=== PATIENT | female | born 1960 | race Two or more races ===

== ENCOUNTER → 2022-10-14 | Outpatient (CLI) | payer MEDICAID | END | disposition home or self-care (01) | LOC: LAB 12:18 | PROVIDERS: ATTEND Internal Medicine Pulmonary Disease | DX: Z01.812 Encounter for preprocedural laboratory examination (principal); Z20.822 Contact with and (suspected) exposure to COVID-19 | CPT/HCPCS: 36415; 87426 ==

== ENCOUNTER → 2022-10-15 | Outpatient (CLI) | payer MEDICAID ==
[~2022-10-15] MED LIST: ALBUTEROL MEDNEB 2.5 mg/3ml NEB ONE
== END | disposition home or self-care (01) ==
LOC: RT 13:30
PROVIDERS: ATTEND Internal Medicine Pulmonary Disease
DX: J44.9 Chronic obstructive pulmonary disease, unspecified (principal); R06.00 Dyspnea, unspecified; U09.9 Post COVID-19 condition, unspecified
CPT/HCPCS: 94060; 94727; 94729

== ENCOUNTER 2023-12-11 17:44 | Emergency (ER) | payer MEDICAID ==
[~2023-12-11] VITALS: Ht 167.6 cm; Wt 69.7 kg
[2023-12-11 19:03] VITALS: BP 148/87; PULSE 100; RESP 18; TEMP 98.2; O2SAT 100
== END 2023-12-11 20:04 | disposition home or self-care (01) ==
LOC: ER 17:44
DX: M25.512 Pain in left shoulder (principal); M54.50 Low back pain, unspecified; Z88.2 Allergy status to sulfonamides; V43.52XA Car driver injured in collision with other type car in traffic accident, initial encounter; Y93.89 Activity, other specified; Y92.89 Other specified places as the place of occurrence of the external cause; Y99.8 Other external cause status

== ENCOUNTER 2025-03-05 08:14 | Inpatient (IN) | payer MEDICAID ==
[~2025-03-05] VITALS: Ht 167.6 cm; Wt 74.0 kg
--- NOTE | 2025-03-05 08:33 | ECG ---
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
[2025-03-05 08:51] LABS: Basophils # (auto) 0 10 ^3/uL (0-0.2); Basophils % (auto) 0.3 % (0.0-2.0); Eosinophils # (auto) 0 10 ^3/uL (0-0.8); Eosinophils % (auto) 0.1 % (0.0-7.0); Hematocrit 38.8 % (36.0-46.0); Hemoglobin 13.4 g/dL (12.2-16.2); Lymphocytes # (auto) 1.3 10 ^3/uL (0.4-5.4); Lymphocytes % (auto) 30.8 % (10.0-50.0); Mean Corpuscular Hgb Conc. 34.5 g/dL (32.0-36.0); Mean Corpuscular Volume 84.1 fL (80.0-100.0); Monocytes # (auto) 0.4 10 ^3/uL (0-1.3); Monocytes % (auto) 9.1 % (0.0-12.0); Neutrophils # (auto) 2.6 10 ^3/uL (1.6-8.6); Neutrophils % (auto) 59.7 % (37.0-80.0); Nucleated Red Blood Cells % 0.1 %; Platelet Count (auto) 150 10^3/uL (140-450); Red Blood Cells 4.62 10^6/uL (4.0-5.20); Red Cell Distribution Width 15.2 % (11.8-14.3); White Blood Cell 4.3 10^3/uL (4.4-10.8)
--- NOTE | 2025-03-05 09:02 | ED.PDOC ---
SOB-HPI HPI Comments 64 year old female presents to the ED with a chief complaint of shortness of breath onset today (03/05/25). Patient states she woke up this morning around 02:00 experiencing shortness of breath, cough, lightheadedness/dizziness and tried to go back to sleep. She woke up again around 04:00, noticed symptoms had worsen, checked BP, was 156/80. Patient called [facility] at [facility], was advised to come to ED. Upon ED arrival, patient states she feels anxious. PMHx CHF, HTN, RA, fibromyalgia, Lupus. Denies chest pain, headache, nausea, vomiting, diarrhea, abdominal pain, nasal congestion, sore throat, fevers, chills. No other symptoms or modifying factors present at this time. Chief Complaint: Shortness of Breath Time Seen by MD: 08:40 Primary Care Provider: JOSEPHINE Torres notes: Medications, Allergies Information Source: Patient Mode of Arrival: Ambulatory Severity: Moderate Timing: Hours Duration: Since onset Context: While Asleep PE Risk Factors: None History of: CHF, Anxiety Prehospital treatment: None Modifying Factors: Nothing Associated Signs and Symptoms: Cough If cough with SOB: Non-Productive Past Medical History PAST MEDICAL HISTORY: Anxiety, Arthritis, CHF, HTN Past Medical History (Other): fibromyalgia Surgical History: Denies all surgeries DIRECTOR 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 RELATIONS History: No Pertinent DIRECTOR OF LABOR RELATIONS History Family History Family History: Reviewed,noncontributory to illness, No family hx of Cancer, No family hx of DM, No family hx of Heart angelia, No family hx of HTN, No family hx ofKidney angelia, No family hx of Liver angelia, No family hx of Lung angelia, No family hx of Stroke Social History Smoker: Non-Smoker Alcohol: Denies ETOH Use Drugs: Denies Drug Use Lives In: Home Constitutional: denies: chills, diaphoresis, fatigue, fever, malaise, sweats, weakness, others EENTM: denies: blurred vision, double vision, ear bleeding, ear discharge, ear drainage, ear pain, ear ringing, eye pain, eye redness, hearing loss, mouth pain, mouth swelling, nasal discharge, nose bleeding, nose congestion, nose pain, photophobia, tearing, throat pain, throat swelling, voice changes, others Respiratory: reports: cough, shortness of breath; denies: hemoptysis, orthopnea, SOB at rest, SOB with excertion, stridor, wheezing, others Cardiovascular: denies: chest pain, dizzy spells, diaphoresis, Dyspnea on exertion, edema, irregular heart beat, left arm pain, lightheadedness, palpitations, PND, syncope, others Gastrointestinal: denies: abdomen distended, abdominal pain, blood streaked bowels, constipated, diarrhea, dysphagia, difficulty swallowing, hematemesis, melena, nausea, poor appetite, poor fluid intake, rectal bleeding, rectal pain, vomiting, others Genitourinary: denies: abnormal vagina bleeding, burning, dyspareunia, dysuria, flank pain, frequency, hematuria, incontinence, pain, , vagina discharge, urgency, others Neurological: reports: dizziness; denies: fainting, headache, left sided numbness, left sided weakness, numbness, paresthesia, pre-existing deficit, right sided numbness, right sided weakness, seizure, speech problems, tingling, tremors, weakness, others Musculoskeletal: denies: back pain, gout, joint pain, joint swelling, muscle pain, muscle stiffness, neck pain, others Integumetry: denies: bruises, change in color, change in hair/nails, dryness, laceration, lesions, lumps, rash, wounds, others Allergic/Immunocompromised: denies: Difficulty Healing, Frequent Infections, Hives, Itching, others Hematologic/Lymphatic: denies: anemia, blood clots, easy bleeding, easy bruising, swollen glands, others Endocrine: denies: excessive hunger, excessive sweating, excessive thirst, excessive urination, flushing, intolerance to cold, intolerance to heat, unexplained weight gain, unexplained weight loss, others Psychiatric: reports: anxiety; denies: bipolar disorder, depression, hopeless, panic disorder, schizophrenia, sleepless, suicidal, others All Other Systems: Reviewed and Negative Physical Exam General Appearance: No Apparent Distress, Normal HEENT: Normal ENT Inspection, Pharynx Normal, TMs Normal Neck: Full Range of Motion, Non-Tender, Normal, Normal Inspection Respiratory: Chest Non-Tender, Lungs Clear, No Accessory Muscle Use, No Respiratory Distress, Normal Breath Sounds Cardiovascular: No Edema, No JVD, No Murmur, No Gallop, Normal Peripheral Pulses, Regular Rate/Rhythm Breast Exam: Deferred Gastrointestinal: No Organomegaly, Non Tender, No Pulsatile Mass, Normal Bowel Sounds, Soft Genitalia: Deferred Pelvic: Deferred Rectal: Deferred Extremities: No calf tenderness, Normal capillary refill, Normal inspection, Normal range of motion, Non-tender, No pedal edema Musculoskeletal : Apperance: Normal Neurologic: Alert, wellness program manager II-XII nml as Tested, No Motor Deficits, Normal Affect, Normal Mood, No Sensory Deficits Cerebellar Function: Normal Reflexes: Normal Skin: Dry, Normal Color, Warm Lymphatic: No Adenopathy Was a procedure done? Was a procedure done?: No Differential Dx Differential Diagnosis: Cardiogenic Shock, CHF, COPD, Panic Attack, Pneumonia, URI X-Ray, Labs, Meds, VS Vital Signs Date Time Temp Pulse Resp B/P (MAP) Pulse Ox O2 Delivery O2 Flow Rate FiO2 03/05/25 10:50 98.1 76 17 155/95 (115) 99 98.1 03/05/25 10:46 155/95 03/05/25 09:34 71 17 98 Room Air* 0 21 03/05/25 09:34 98.0 71 17 152/85 (107) 98 98.0 03/05/25 08:31 70 03/05/25 08:30 98.4 76 16 169/79 (109) 100 98.4 Lab Test 03/05/25 09:30 03/05/25 08:40 Range/Units Troponin I High Sensitivity 5 4 </=34 ng/L White Blood Count 4.3 L 4.4-10.8 10^3/uL Red Blood Count 4.62 4.0-5.20 10^6/uL Hemoglobin 13.4 12.2-16.2 g/dL Hematocrit 38.8 36.0-46.0 % Mean Corpuscular Volume 84.1 80.0-100.0 fL Mean Corpuscular Hemoglobin 29.0 28.0-32.0 pg Mean Corpuscular Hemoglobin Concent 34.5 32.0-36.0 g/dL Red Cell Distribution Width 15.2 H 11.8-14.3 % Platelet Count 150 140-450 10^3/uL Mean Platelet Volume 7.5 6.9-10.8 fL Neutrophils (%) (Auto) 59.7 37.0-80.0 % Lymphocytes (%) (Auto) 30.8 10.0-50.0 % Monocytes (%) (Auto) 9.1 0.0-12.0 % Eosinophils (%) (Auto) 0.1 0.0-7.0 % Basophils (%) (Auto) 0.3 0.0-2.0 % Neutrophils # (Auto) 2.6 1.6-8.6 10 ^3/uL Lymphocytes # (Auto) 1.3 0.4-5.4 10 ^3/uL Monocytes # (Auto) 0.4 0-1.3 10 ^3/uL Eosinophils # (Auto) 0 0-0.8 10 ^3/uL Basophils # (Auto) 0 0-0.2 10 ^3/uL Nucleated Red Blood Cells 0.1 % Prothrombin Time 10.4 9.3-11.8 sec Prothrombin Time INR 0.98 0.9-1.15 Activated Partial Thromboplast Time 28.2 24.5-34.5 SEC Sodium Level 142 136-145 mmol/L Potassium Level 3.8 3.5-5.1 mmol/L Chloride Level 107 98-107 mmol/L Carbon Dioxide Level 27 20-31 mmol/L Anion Gap 8 5-15 Blood Urea Nitrogen 16 9-23 mg/dL Creatinine 0.68 0.550-1.02 mg/dL Glomerular Filtration Rate Calc 98 >90 mL/min BUN/Creatinine Ratio 23.5 H 10.0-20.0 Serum Glucose 89 74-106 mg/dL Calcium Level 9.8 8.7-10.4 mg/dL Total Bilirubin 1.9 H 0.2-1.0 mg/dL Aspartate Amino Transferase (AST) 18 13-40 U/L Alanine Aminotransferase (ALT) 15 7-40 U/L Alkaline Phosphatase 76 46-116 U/L B-Type Natriuretic Peptide 64.83 0-100 pg/mL Total Protein 7.0 5.7-8.2 g/dL Albumin 4.4 3.2-4.8 g/dL Current Medications Medications (Trade) Dose Ordered Sig/Stephania Route Start Time Stop Time Status Last Admin Furosemide (Lasix Injection) 20 mg ONCE ONCE IV 03/05/25 10:30 03/05/25 10:31 DC 03/05/25 10:[address] [address] Ph: [phone] DIAGNOSTIC IMAGING Diagnostic Imaging Report : [id number] Signed PATIENT: CYRUS GARCIA ACCT: [id number] UNIT: [id number] : 1960 LOC: ER ROOM / BED: / AGE / SEX: 64 / F ADM STATUS: REG ER SERVICE 7 ORDERING PHYSICIAN: REID COLINDRES MD PROCEDURE(s): CXRP - CHEST PORTABLE REASON: sob ORDER NUMBER(s): [id number], ACCESSION NUMBER(s): [id number] CHEST RADIOGRAPH Indication: sob Technique: Single frontal view of the chest was obtained Comparison: None FINDINGS: Lines and Tubes: None Lungs: No focal consolidation. Pleura: No effusion. No pneumothorax. Cardiomediastinal contours: Unremarkable Bones: No acute osseous abnormality. IMPRESSION: 1. No acute cardiopulmonary disease. ATED BY: UZIEL FISCHER MD DICTATED DATE/TIME: 03/05/25958 SIGNED BY: UZIEL FISCHER MD SIGNED DATE/TIME: 03/05/25958 CC: Time of 1ST Reevaluation: 09:10 Reevaluation 1ST: Unchanged Patient Education/Counseling: Diagnosis, Treatment, Prognosis Family Education/Counseling: No Family Present Departure 1 Departure Time of Disposition: 11:17 (Patient presented with shortness of breath that was concerning for possible STEMI, ACS, PE, Pneumonia, Muscle Strain, COPD, Dissection, Acute on Chronic systolic and Diastolic dysfunction. Data: 1. I ordered and reviewed the result of at least 3 labs including a CBC, BMP, and Troponin. 2. I independently interpreted the following tests: EKG which shows sinus arrhthmia and Chest X-ray which shows cardiomegaly.Risk:This patient has a high risk of morbidity due to further diagnostic testing or treatment and may suffer from an acute cardiac or respiratory disorder but is most consitent with an acute chf exacerbation. Patient should be admitted for further workup and possible expert consultation. ) Impression: Primary Impression: Acute on chronic systolic heart failure Additional Impressions: Shortness of breath Lower extremity edema Disposition: ADMITTED INPATIENT Admit to: Med Surg Condition: Guarded Critical Care Note Critical Care Time?: Yes Critical care comment: Shortness of breath Authorized and Performed by: Reid Colindres MD Total critical care time: Approximately 33 minutes Due to a high probability of clinically significant, life threatening deterioration, the patient required my highest level of preparedness to intervene emergently and I personally spent this critical care time directly and personally managing the patient. This critical care time included obtaining a history; examining the patient; pulse oximetry; ordering and review of studies; arranging urgent treatment with development of a management plan; evaluation of patient's response to treatment; frequent reassessment; and, discussions with other providers. This critical care time was performed to assess and manage the high probability of imminent, life-threatening deterioration that could result in multi-organ failure. It was exclusive of separately billable procedures and treating other patients and teaching time. Please see my other sections and the rest of the note for further information on patient assessment and treatment. Stability Stability form required: No Heart Score Heart Score: Heart Score Response (Comments) Value History Slightly Suspicious 0 EKG Repolarization Disturb 1 Age 45-64 1 Risk Factors >3 or Hx ASHD 2 Troponin Normal limit 0 Total 4 I personally scribed for REID COLINDRES MD ([email or web address]) on 03/05/25 at 09:02. Electronically submitted by Sheridan Mendoza ([email or web address]). I personally scribed for REID COLINDRES MD ([email or web address]) on 03/05/25 at 10:17. Electronically submitted by Sheridan Mendoza ([email or web address]). REID COLINDRES MD Mar 05, 2025 09:02
[2025-03-05 09:07] LABS: INR 0.98 (0.9-1.15); Partial Thromboplastin Time 28.2 SEC (24.5-34.5); Prothrombin Time 10.4 sec (9.3-11.8)
[2025-03-05 09:13] LABS: Alanine Aminotransferase 15 U/L (7-40); Albumin 4.4 g/dL (3.2-4.8); Alkaline Phosphatase 76 U/L (46-116); Anion Gap 8 (5-15); Aspartate Aminotransferase 18 U/L (13-40); BUN/Creatinine Ratio 23.5 (10.0-20.0); Blood Urea Nitrogen 16 mg/dL (9-23); Calcium 9.8 mg/dL (8.7-10.4); Carbon Dioxide 27 mmol/L (20-31); Chloride 107 mmol/L (98-107); Glucose 89 mg/dL (74-106); Potassium 3.8 mmol/L (3.5-5.1); Sodium 142 mmol/L (136-145)
[2025-03-05 09:15] LABS: Bilirubin, Total 1.9 mg/dL (0.2-1.0)
[2025-03-05 09:34] VITALS: PULSE 71; RESP 17; O2SAT 98
--- NOTE | 2025-03-05 10:01 | DVH ---
CHEST RADIOGRAPH Indication: sob Technique: Single frontal view of the chest was obtained Comparison: None FINDINGS: Lines and Tubes: None Lungs: No focal consolidation. Pleura: No effusion. No pneumothorax. Cardiomediastinal contours: Unremarkable Bones: No acute osseous abnormality. IMPRESSION: 1. No acute cardiopulmonary disease.
[2025-03-05] MEDS: FUROSEMIDE 40 MG/4 ML VIAL IV ONE (10:46)
[2025-03-05] MEDS ORDERED: SODIUM CHLOR 0.9% PF (SALINE LOCK) 10ML VIAL/SYR IV SCH (14:00)
--- NOTE | 2025-03-05 14:22 | DVHHP2 ---
History of Present Illness Reason for Visit: Shortness of breath History of Present Illness Maria Teresa Membreno is a 64-year-old female with past medical history of hypertension, rheumatoid arthritis, anxiety, chronic pain, lupus, fibromyalgia, and CHF, who came to the hospital due to shortness of breath. Patient states she was recently diagnosed with CHF. She was prescribed spirolactone, but told not to start it because she was not retaining any water. This morning she woke up with her eyes, hands, feet, and abdomen swollen. She states she was having difficulty wiggling her toes due to the edema. She has gained about 6-8 pounds in the last couple of days. Patient follows with cardiology at [place], states she recently had an ECHO that showed an ER of 35-40%. Cardiovascular: CHF, HTN Psych: Anxiety Rheumatologic: Other (lupus, chronic pain, fibromyalgia), Rheumatoid arthritis Past Surgical History: Other (left knee), Tubal Ligation, Tonsillectomy Smoke: No ALCOHOL: none Drugs: None Lives: Alone Domestic Violence: Neg Review of Systems Constitutional: No: Fever, Chills, Sweats, Weakness, Malaise, Other Eyes: No: Pain, Vision change, Conjunctivae inflammation, Eyelid inflammation, Other, Redness ENT: No: Ear pain, Ear discharge, Nose pain, Nose discharge, Nose congestion, Mouth pain, Mouth swelling, Throat pain, Throat swelling, Other Respiratory: Shortness of breath; No: Cough, Dry, SOB with excertion, Wheezing, Hemoptysis, Pleuritic Pain, Sputum, Wheezing, Other Cardiovascular: Edema (bilateral upper and lower extremities); No: Chest Pain, Palpitations, Orthopnea, Paroxysmal Noc. Dyspnea, Lt Headedness, Other Gastrointestinal: No: Nausea, Vomiting, Abdominal Pain, Diarrhea, Constipation, Melena, Hematochezia, Other Genitourinary: No Dysuria, No Frequency, No Incontinence, No Hematuria, No Retention, No Other Musculoskeletal: No: other, neck pain, shoulder pain, arm pain, back pain, hand pain, leg pain, foot pain Skin: No: Rash, Lesions, Jaundice, Bruising, Other Neurological: No: Weakness, Numbness, Incoordination, Change in speech, Confusion, Seizures, Other Allergies: Coded Allergies: Phenazopyridine (Verified Allergy, Unknown, 08/28/16) Sulfa Antibiotics (Verified Allergy, Unknown, 08/28/16) Exam Vital Signs Vital Signs Date Time Temp Pulse Resp B/P (MAP) Pulse Ox O2 Delivery O2 Flow Rate FiO2 03/05/25 13:38 98.3 79 14 121/73 (89) 100 98.3 03/05/25 09:34 Room Air* 0 21 General Appearance: Alert, Oriented X3, Cooperative, mild distress HEENT: Atraumatic, PERRLA, Mucous membr. moist/pink Respiratory: Clear to auscultation, Normal air movement Cardiovascular: Regular rate, Normal S1, Normal S2, No murmurs Abdominal: Normal bowel sounds Extremities: No clubbing, No cyanosis, Normal pulses, Other (bilateral lower extremity edema) Skin: No rashes, No breakdown, No significant lesion Neuro: Normal gait, Normal speech, Strength at 5/5 X4 ext, Normal tone Psych/Mental Status: Mental status NL, Mood NL, Other Labs/Xrays Labs Test 03/05/25 09:30 03/05/25 08:40 Range/Units Troponin I High Sensitivity 5 </=34 ng/L White Blood Count 4.3 L 4.4-10.8 10^3/uL Red Blood Count 4.62 4.0-5.20 10^6/uL Hemoglobin 13.4 12.2-16.2 g/dL Hematocrit 38.8 36.0-46.0 % Mean Corpuscular Volume 84.1 80.0-100.0 fL Mean Corpuscular Hemoglobin 29.0 28.0-32.0 pg Mean Corpuscular Hemoglobin Concent 34.5 32.0-36.0 g/dL Red Cell Distribution Width 15.2 H 11.8-14.3 % Platelet Count 150 140-450 10^3/uL Mean Platelet Volume 7.5 6.9-10.8 fL Neutrophils (%) (Auto) 59.7 37.0-80.0 % Lymphocytes (%) (Auto) 30.8 10.0-50.0 % Monocytes (%) (Auto) 9.1 0.0-12.0 % Eosinophils (%) (Auto) 0.1 0.0-7.0 % Basophils (%) (Auto) 0.3 0.0-2.0 % Neutrophils # (Auto) 2.6 1.6-8.6 10 ^3/uL Lymphocytes # (Auto) 1.3 0.4-5.4 10 ^3/uL Monocytes # (Auto) 0.4 0-1.3 10 ^3/uL Eosinophils # (Auto) 0 0-0.8 10 ^3/uL Basophils # (Auto) 0 0-0.2 10 ^3/uL Nucleated Red Blood Cells 0.1 % Prothrombin Time 10.4 9.3-11.8 sec Prothrombin Time INR 0.98 0.9-1.15 Activated Partial Thromboplast Time 28.2 24.5-34.5 SEC Sodium Level 142 136-145 mmol/L Potassium Level 3.8 3.5-5.1 mmol/L Chloride Level 107 98-107 mmol/L Carbon Dioxide Level 27 20-31 mmol/L Anion Gap 8 5-15 Blood Urea Nitrogen 16 9-23 mg/dL Creatinine 0.68 0.550-1.02 mg/dL Glomerular Filtration Rate Calc 98 >90 mL/min BUN/Creatinine Ratio 23.5 H 10.0-20.0 Serum Glucose 89 74-106 mg/dL Calcium Level 9.8 8.7-10.4 mg/dL Total Bilirubin 1.9 H 0.2-1.0 mg/dL Aspartate Amino Transferase (AST) 18 13-40 U/L Alanine Aminotransferase (ALT) 15 7-40 U/L Alkaline Phosphatase 76 46-116 U/L B-Type Natriuretic Peptide 64.83 0-100 pg/mL Total Protein 7.0 5.7-8.2 g/dL Albumin 4.4 3.2-4.8 g/dL CHEST RADIOGRAPH FINDINGS: Lines and Tubes: None Lungs: No focal consolidation. Pleura: No effusion. No pneumothorax. Cardiomediastinal contours: Unremarkable Bones: No acute osseous abnormality. IMPRESSION: 1. No acute cardiopulmonary disease. Assessment/Plan Assessment/Plan Assessment: Acute on chronic systolic heart failure, Hypertension, Rheumatoid arthritis, Chronic pain, Fibromyalgia, Plan: Admit to Med-Surg, Fluid restrictions, IV Lasix, Home medications reconciled, Consider cardiology consult if symptoms do not improve, Plan discussed with: Patient My Orders Orders - NATHALY ZUNIGA UPSETTER SETTER UP Procedure Category Date Status Time Admit ADMIT 03/05/25 Transmitted 14:18 Code Status CODE 03/05/25 Transmitted 14:18 Sodium Chloride Lock PHA 03/05/25 Transmitted (Saline Lock Ns) 22:00 Ondansetron Hcl PHA 03/05/25 Transmitted (Zofran) 14:30 Docusate Sodium PHA 03/05/25 Transmitted Capsule (Colace 14:30 Complete Blood Count LAB 03/06/25 Verified 04:00 Comprehensive LAB 03/06/25 Verified Metabolic Panel 04:00 Cardiac DIET 03/05/25 Transmitted Diet-2gna,Lofat,Lochol Dinner Condition: Serious E[place] 03/05/25 Transmitted 14:18 Acetaminophen Tablet PHA 03/05/25 Transmitted (Tylenol Tablet) 14:30 Stat Ekg For Chest [place] 03/05/25 Transmitted Pain 14:18 Maintain Fluid E[place] 03/05/25 Transmitted Restrictions 14:18 Date of Service: Mar 05, 2025 Billing Provider: NATHALY ZUNIGA Common Visit Codes: [id number] INP/OBS CARE (MOD) NATHALY ZUNIGA Mar 05, 2025 14:22
[2025-03-05] MEDS ORDERED: ONDANSETRON HCL 4 MG/2 ML VIAL IV PRN (14:30)
[2025-03-05] MEDS ORDERED: DOCUSATE SOD 100 MG CAP PO PRN (14:30)
[2025-03-05] MEDS ORDERED: ACETAMINOPHEN 325 MG TAB PO PRN (14:30)
[2025-03-05 15:03] VITALS: BP 127/69; PULSE 76; RESP 16; TEMP 98.3; O2SAT 94
[2025-03-05 15:33] VITALS: BP 155/95; PULSE 76; RESP 16; TEMP 98.3; O2SAT 94
[2025-03-05] MEDS ORDERED: METO25TA93 PO (15:44)
[2025-03-05] MEDS ORDERED: OXY20CRT PO (15:44)
[2025-03-05] MEDS ORDERED: LOS25T PO (15:44)
[2025-03-05] MEDS ORDERED: HYDR-4798 PO (15:44)
[2025-03-05] MEDS ORDERED: ZOLP10TA6 PO (15:44)
[2025-03-05] MEDS ORDERED: MAGN400T6 PO (15:44)
[2025-03-05] MEDS ORDERED: SPIR25TA8 PO (15:44)
[2025-03-05] MEDS ORDERED: ZOLPIDEM TARTRATE 5 MG TAB PO PRN (16:00)
[2025-03-05] MEDS ORDERED: SEMA2.4I SC (17:04)
[2025-03-05] MEDS ORDERED: ETAN50IN10 SC (17:04)
[2025-03-05] MEDS: HYDROcodone-ACET 10/325MG TAB PO PRN (17:19)
[2025-03-05] MEDS: ACETAMINOPHEN 325 MG TAB PO PRN (17:44)
[2025-03-05] MEDS: SODIUM CHLOR 0.9% PF (SALINE LOCK) 10ML VIAL/SYR IV SCH (22:00)
[2025-03-05] MEDS: oxyCODONE ER 20 MG TAB PO SCH (22:34)
[2025-03-06] VITALS (7 sets, daily range): BP systolic 103–146; BP diastolic 66–88; PULSE 63–80; RESP 15–19; TEMP 97.3–98.1; O2SAT 95–99
[2025-03-06 06:50] LABS: Basophils # (auto) 0 10 ^3/uL (0-0.2); Basophils % (auto) 0.3 % (0.0-2.0); Eosinophils # (auto) 0 10 ^3/uL (0-0.8); Eosinophils % (auto) 0.3 % (0.0-7.0); Hematocrit 38.9 % (36.0-46.0); Hemoglobin 13.3 g/dL (12.2-16.2); Lymphocytes % (auto) 27.2 % (10.0-50.0); Mean Corpuscular Hemoglobin 28.8 pg (28.0-32.0); Mean Corpuscular Hgb Conc. 34.3 g/dL (32.0-36.0); Mean Corpuscular Volume 83.9 fL (80.0-100.0); Monocytes # (auto) 0.4 10 ^3/uL (0-1.3); Monocytes % (auto) 11.4 % (0.0-12.0); Neutrophils # (auto) 2.3 10 ^3/uL (1.6-8.6); Neutrophils % (auto) 60.8 % (37.0-80.0); Nucleated Red Blood Cells % 0.1 %; Platelet Count (auto) 155 10^3/uL (140-450); Red Blood Cells 4.63 10^6/uL (4.0-5.20); Red Cell Distribution Width 15.1 % (11.8-14.3); White Blood Cell 3.8 10^3/uL (4.4-10.8)
[2025-03-06 06:59] LABS: Alanine Aminotransferase 11 U/L (7-40); Albumin 4.1 g/dL (3.2-4.8); Alkaline Phosphatase 68 U/L (46-116); Anion Gap 8 (5-15); Aspartate Aminotransferase 15 U/L (13-40); BUN/Creatinine Ratio 25.8 (10.0-20.0); Blood Urea Nitrogen 17 mg/dL (9-23); Calcium 9.7 mg/dL (8.7-10.4); Carbon Dioxide 28 mmol/L (20-31); Chloride 107 mmol/L (98-107); Glucose 86 mg/dL (74-106); Potassium 3.8 mmol/L (3.5-5.1); Sodium 143 mmol/L (136-145); Total Protein 6.6 g/dL (5.7-8.2)
[2025-03-06 07:01] LABS: Bilirubin, Total 2.2 mg/dL (0.2-1.0)
[2025-03-06] MEDS: FUROSEMIDE 20 MG/2 ML VIAL IV SCH (09:15)
[2025-03-06] MEDS: METOPROLOL SUCCINATE XL 50 MG TAB PO SCH (09:15)
[2025-03-06] MEDS: LOSARTAN POTASSIUM 25 MG TAB PO SCH (09:15)
[2025-03-06] MEDS ORDERED: MAGNESIUM OXIDE 400 MG TAB PO SCH (10:00)
[2025-03-06 10:30] LABS: Hepatitis B Surface Antibody Negative (Negative); Hepatitis C Antibody Negative (Negative)
--- NOTE | 2025-03-06 12:04 | DVHSR ---
APPROVED REPORT EXAM: Two-dimensional and M-mode echocardiogram with Doppler and color Doppler. Blood Pressure: 126/78 mmHg INDICATION HF RISK FACTORS Height: 66, Weight: 156 DIMENSIONS LVDd5.2 (3.8-5.7cm)LA (2D)3.7 (1.9-4.0cm)Aortic Root3.5 (2.0-3.7cm) LVDs4.3 (2.5-4.0cm)LA (MM) (1.9-4.0cm)Aortic Cusp Exc1.7 (1.5-2.0cm) EF (%) 35.0 (55-70%)Rt. Atrium4.2 (1.9-4.0cm)Asc. Aorta cm Mitral Valve MitralMitral Stenosis E wave0.52m/sMV Mean GR.mmHg A wave0.74m/sMV Peak GR.61mmHg E/A ratio0.72D MVAcm2 DECEL [id number] 1/2 Timems Aortic Valve Aortic ValveAortic Stenosis V10.67m/Norma Mean GR.3mmHg V21.21m/Norma Peak GR.6mmHg LVOT Diameter2.2 (1.8-2.4cm)Doppler AVA2.10cm2 Pulmonic Valve V20.77m/s Other Information Technically limited study due to body habitus, patient position and patient continued to move and cl ear her throat throughout the entire study. Conclusion lvef 35% LV dilated mild normal rv function no severe valve abnormalities noted mild mitral regurg
--- NOTE | 2025-03-06 16:56 | DVHPNRES ---
Progress Note Date Seen: Mar 06, 2025 Resident Creating Document: ARMANI VERDUZCO RESIDENT Has the PT tested + for MRSA If YES, has PT been informed?: No Medical Necessity Reason Pt with a Central, PICC or Fol: No Subjective Review of Systems Maria Teresa Membreno is a 64-year-old female with past medical history of hypertension, rheumatoid arthritis, anxiety, chronic pain, lupus, fibromyalgia, and CHF, who came to the hospital due to shortness of breath. Patient states she was recently diagnosed with CHF on oct 2024,. She was prescribed spirolactone, but told not to start it because she was not retaining any water. This morning she woke up with her eyes, hands, feet, and abdomen swollen. She states she was having difficulty wiggling her toes due to the edema. She has gained about 6-8 pounds in the last couple of days. Patient follows with cardiology at [place], states she recently had an ECHO that showed an ER of 35-40%, pending ischemic work up Cardiovascular: CHF, HTN Psych: Anxiety Rheumatologic: Other (lupus, chronic pain, fibromyalgia), Rheumatoid arthritis Past Surgical History: Other (left knee), Tubal Ligation, Tonsillectomy Smoke: No ALCOHOL: none Drugs: None Lives: Alone Domestic Violence: Neg 03/06/25: furosemide IV given, edema and crackle improved, continue diuresis 1 more day, echo here in [facility] EF35% no major valvular abnormalities Objective vital signs Vital Sign Date Time Temp Pulse Resp B/P (MAP) Pulse Ox O2 Delivery O2 Flow Rate FiO2 03/06/25 13:26 98.1 70 16 118/75 (89) 96 98.1 03/06/25 08:28 Room Air* 0 21 Total Intake and Output 03/05/25 03/05/25 03/06/25 15:00 23:00 07:00 Intake Total 300 ml Balance 300 ml medications Current Medications Medications Dose Ordered Sig/Stephania Route Start Time Stop Time Status Last Admin Dose Admin Sodium Chloride 10 ml Q8HR IV 03/05/25 22:00 03/06/25 13:07 10 ML Ondansetron HCl 4 mg Q4HP PRN IV 03/05/25 14:30 Docusate Sodium 100 mg BIDPRN PRN PO 03/05/25 14:30 Acetaminophen/ Hydrocodone Bitart 1 tab TIDP PRN PO 03/05/25 15:00 03/06/25 11:43 1 TAB Losartan Potassium 25 mg DAILY PO 03/06/25 10:00 03/06/25 09:15 25 MG Metoprolol Succinate 25 mg DAILY PO 03/06/25 10:00 03/06/25 09:15 25 MG Acetaminophen 650 mg Q6HP PRN PO 03/05/25 16:00 03/06/25 00:51 650 MG Oxycodone HCl 20 mg BIDP PRN PO 03/06/25 16:45 UNV Examination General Appearance: Alert, Oriented X3, Cooperative, mild distress HEENT: Atraumatic, PERRLA, Mucous membr. moist/pink Respiratory: Clear to auscultation, Normal air movement Cardiovascular: Regular rate, Normal S1, Normal S2, No murmurs Abdominal: Normal bowel sounds Extremities: No clubbing, No cyanosis, Normal pulses, Other (bilateral lower extremity edema) Skin: No rashes, No breakdown, No significant lesion Neuro: Normal gait, Normal speech, Strength at 5/5 X4 ext, Normal tone Psych/Mental Status: Mental status NL, Mood NL, Other laboratory and microbiology Laboratory Tests 03/06/25 06:06 Test 03/06/25 06:06 Range/Units Serum Glucose 86 74-106 mg/dL Problem List/Assessment/Plan Problem List/Assessment/Plan #Acute on chronic systolic heart failure #Hypertension #Rheumatoid arthritis #Chronic pain #Fibromyalgia Furosemide 20 mg IV Metoprolol and losartan 25 mg Oxycodone ER tablet Case discussed with Dr Grewal Full code Plan discussed with: Patient, Other My Orders My Orders Orders - ARMANI VERDUZCO RESIDENT Procedure Category Date Status Time Echo 2d Mode Cardiac US 03/06/25 Resulted DOP 08:28 Oxycodone Er Tablet PHA 03/06/25 Logged (Oxycontin Er Tablet 16:45 Date of Service: Mar 06, 2025 Billing Provider: SITA GREWAL MD Common Visit Codes: [id number] INP/OBS CARE(HIGH) ARMANI VERDUZCO RESIDENT Mar 06, 2025 16:56 SITA GREWAL MD Mar 07, 2025 15:38
[2025-03-07 01:00] VITALS: BP 122/82; PULSE 67; RESP 14; TEMP 97.2; O2SAT 98
[2025-03-07] MEDS: oxyCODONE ER 20 MG TAB PO PRN (04:38)
[2025-03-07 05:00] VITALS: BP 119/80; PULSE 77; RESP 14; TEMP 96.6; O2SAT 100
[2025-03-07] MEDS: FUROSEMIDE 20 MG/2 ML VIAL IV SCH (08:48)
[2025-03-07 09:40] VITALS: BP 127/76; PULSE 78; RESP 16; TEMP 97.2; O2SAT 99
[2025-03-07] MEDS: KETOROLAC TROMETH 30 MG/ML 1ML VIAL IV ONE (11:39)
[2025-03-07 12:27] LABS: Urine Bacteria None Seen /hpf (None Seen)
[2025-03-07 12:42] LABS: Urine Blood Negative /uL (Negative); Urine Clarity Clear (Clear); Urine Color Light-Yellow (Yellow); Urine Mucus FEW (None Seen); Urine Protein, UAD Negative (Negative); Urine Specific Gravity 1.018 (1.001-1.035); Urine Squamous Epithelial Cell FEW /hpf (<5); Urine Urobilinogen Normal (Negative); Urine WBC 1 /HPF (0-5); Urine pH 5.5 (5.0-9.0)
--- NOTE | 2025-03-07 15:56 | DVHDSRES ---
Discharge Summary Date of Admission Resident Creating Document: ARMANI VERDUZCO RESIDENT Mar 05, 2025 at 14:18 Date of Discharge: Mar 07, 2025 Admitting Diagnosis #Acute on chronic systolic heart failure Labs/Diagnostic Data: Laboratory Results Test 03/07/25 10:34 03/06/25 06:06 03/05/25 09:30 03/05/25 08:40 Urine Color Light-yellow (Yellow) Urine Clarity Clear (Clear) Urine pH 5.5 (5.0-9.0) Urine Specific [place] 1.018 (1.001-1.035) Urine Protein Negative (Negative) Urine Ketones Negative (Negative) Urine Blood Negative /uL (Negative) Urine Nitrite Negative (Negative) Urine Bilirubin Negative (Negative) Urine Urobilinogen Normal mg/dL (Negative) Urine Leukocyte Esterase Negative /uL (Negative) Urine RBC 1 /hpf (0 - 4) Urine Microscopic WBC 1 /HPF (0-5) Urine Squamous Epithelial Cells Few /hpf (<5) Urine Bacteria None seen /hpf (None Seen) Urine Mucus Few (None Seen) Urine Glucose Normal mg/dL (Normal) White Blood Count 3.8 10^3/uL (4.4-10.8) Red Blood Count 4.63 10^6/uL (4.0-5.20) Hemoglobin 13.3 g/dL (12.2-16.2) Hematocrit 38.9 % (36.0-46.0) Mean Corpuscular Volume 83.9 fL (80.0-100.0) Mean Corpuscular Hemoglobin 28.8 pg (28.0-32.0) Mean Corpuscular Hemoglobin Concent 34.3 g/dL (32.0-36.0) Red Cell Distribution Width 15.1 % (11.8-14.3) Platelet Count 155 10^3/uL (140-450) Mean Platelet Volume 7.7 fL (6.9-10.8) Neutrophils (%) (Auto) 60.8 % (37.0-80.0) Lymphocytes (%) (Auto) 27.2 % (10.0-50.0) Monocytes (%) (Auto) 11.4 % (0.0-12.0) Eosinophils (%) (Auto) 0.3 % (0.0-7.0) Basophils (%) (Auto) 0.3 % (0.0-2.0) Neutrophils # (Auto) 2.3 10 ^3/uL (1.6-8.6) Lymphocytes # (Auto) 1.0 10 ^3/uL (0.4-5.4) Monocytes # (Auto) 0.4 10 ^3/uL (0-1.3) Eosinophils # (Auto) 0 10 ^3/uL (0-0.8) Basophils # (Auto) 0 10 ^3/uL (0-0.2) Nucleated Red Blood Cells 0.1 % Sodium Level 143 mmol/L (136-145) Potassium Level 3.8 mmol/L (3.5-5.1) Chloride Level 107 mmol/L (98-107) Carbon Dioxide Level 28 mmol/L (20-31) Anion Gap 8 (5-15) Blood Urea Nitrogen 17 mg/dL (9-23) Creatinine 0.66 mg/dL (0.550-1.02) Glomerular Filtration Rate Calc 99 mL/min (>90) BUN/Creatinine Ratio 25.8 (10.0-20.0) Serum Glucose 86 mg/dL (74-106) Calcium Level 9.7 mg/dL (8.7-10.4) Magnesium Level 2.3 mg/dL (1.6-2.6) Total Bilirubin 2.2 mg/dL (0.2-1.0) Aspartate Amino Transferase (AST) 15 U/L (13-40) Alanine Aminotransferase (ALT) 11 U/L (7-40) Alkaline Phosphatase 68 U/L (46-116) Total Protein 6.6 g/dL (5.7-8.2) Albumin 4.1 g/dL (3.2-4.8) Troponin I High Sensitivity 5 ng/L (</=34) Prothrombin Time 10.4 sec (9.3-11.8) Prothrombin Time INR 0.98 (0.9-1.15) Activated Partial Thromboplast Time 28.2 SEC (24.5-34.5) B-Type Natriuretic Peptide 64.83 pg/mL (0-100) Hepatitis B Surface Antibody Negative (Negative) Hepatitis C Antibody Negative (Negative) Other Laboratory Tests 03/06/25 06:06 Brief Hx & Hospital Course: 64-year-old female with a complex past medical history including CHF, HTN, RA, fibromyalgia, chronic pain, and anxiety presented with shortness of breath and diffuse edema. She was recently diagnosed with CHF in October 2024 and had not initiated spironolactone due to lack of diuresis. On admission, she reported swelling of the eyes, hands, feet, and abdomen with difficulty wiggling her toes, and a weight gain of approximately 68 pounds over the past few days. On arrival, vitals were stable. She had bilateral lower extremity edema and crackles on exam, which improved after administration of IV furosemide. Repeat echo at [facility] showed EF 35% with no major valvular abnormalities. She remained hemodynamically stable on room air. No new ischemic changes noted. Chronic pain management continued with oxycodone ER. Her home medications were reviewed and adjusted. She remained oriented, cooperative, and without signs of infection or decompensation during her stay. Follow-Up: Cardiology follow-up for CHF management in [facility] for ischemic work up Primary care physician within 1 week Rheumatology as outpatient Instructions: Monitor daily weights and symptoms of fluid overload Adhere to low-sodium diet Medication adherence Seek immediate care for chest pain, worsening dyspnea, or confusion Case discussed with Dr Grewal Full code Operations or Procedures EXAM: Two-dimensional and M-mode echocardiogram with Doppler and color Doppler. Blood Pressure: 126/78 mmHg INDICATION HF RISK FACTORS Height: 66, Weight: 156 DIMENSIONS LVDd 5.2 (3.8-5.7cm) LA (2D) 3.7 (1.9-4.0cm) Aortic Root 3.5 (2.0- 3.7cm) LVDs 4.3 (2.5-4.0cm) LA (MM) (1.9-4.0cm) Aortic Cusp Exc 1.7 (1.5- 2.0cm) EF (%) 35.0 (55-70%) Rt. Atrium 4.2 (1.9-4.0cm) Asc. Aorta cm Mitral Valve Mitral Mitral Stenosis E wave 0.52m/s MV Mean GR. mmHg A wave 0.74m/s MV Peak GR. 61mmHg E/A ratio 0.7 2D MVA cm2 DECEL Time 215ms PRESS 1/2 Time ms Aortic Valve Aortic Valve Aortic Stenosis V1 0.67m/s AO Mean GR. 3mmHg V2 1.21m/s AO Peak GR. 6mmHg LVOT Diameter 2.2 (1.8-2.4cm) Doppler KYLIE 2.10cm2 Pulmonic Valve V2 0.77m/s Other Information Technically limited study due to body habitus, patient position and patient continued to move and clear her throat throughout the entire study. Conclusion lvef 35% LV dilated mild normal rv function no severe valve abnormalities noted mild mitral regurg Condition at Discharge: Stable Final Diagnosis/Problems List #Acute on chronic systolic heart failure #Hypertensive heart disease with systolic dysfunction #Rheumatoid arthritis #Chronic pain #Fibromyalgia Discharge Disposition: Home Discharge Instruct/Medications Diet: Cardiac 2g Na,low cholest Activity: No Restrictions, As Tolerated Follow Up/Referral: fu with pcp and armament mechanic Medications: resume home meds Discharge Statement: "Patient was advised to return to the ER or call 911 if any headaches, dizziness, shortness of breath, chest pain, abdominal pain, bleeding, fevers, or worsening of medical condition. Patient was counseled about treatment plan, medications, possible side effects, patientverbalized understanding. All questions were answered to the best of my ability. This discharge took greater then 30 minutes in planning, reviewing documentation, counseling the patient, and discussing with other team members." ASSESSMENT ASSESSMENT Assessment heart failure exacrebation Date of Service: Mar 07, 2025 Billing Provider: SITA GREWAL MD Common Visit Codes: 57679-UWI/OBS DISCH DAY >30min ARMANI VERDUZCO RESIDENT Mar 07, 2025 15:56 SITA GREWAL MD Mar 09, 2025 12:17
== END 2025-03-07 13:27 | disposition home or self-care (01) | DRG 194 ==
LOC: ER 08:14 → OVERFLOW 14:18 → WEST WING 22:34
PROVIDERS: ADMIT Student in an Organized Health Care Education/Training Program; ATTEND Emergency Medicine
DX: I11.0 Hypertensive heart disease with heart failure (principal); F41.9 Anxiety disorder, unspecified; G89.29 Other chronic pain; I50.23 Acute on chronic systolic (congestive) heart failure; M79.7 Fibromyalgia; M06.9 Rheumatoid arthritis, unspecified
CPT/HCPCS: 36415; 71045; 80053; 81001; 83735; 83880; 84484; 85025; 85610; 85730; 86706; 86803; 93005; 93306; 96374; 99291; G0378; J1885

== ENCOUNTER 2025-07-25 10:02 | Inpatient (IN) | payer MEDICAID ==
[~2025-07-25] VITALS: Ht 167.6 cm; Wt 70.3 kg
[~2025-07-25 10:02] MED LIST changes: -ALBUTEROL MEDNEB 2.5 mg/3ml NEB ONE; +ETAN50IN10 SC; +LOS25T PO; +METO25TA93 PO; +OXY20CRT PO; +SEMA2.4I SC; +SPIR25TA8 PO; +ZOLP10TA6 PO
--- NOTE | 2025-07-25 10:33 | ED.PDOC ---
General HPI Comments 65-year-old female who presents to the ED for chief complaint of urinary complaints. Patient states that she has been having a UTI as 19 days. Patient states that she was originally given oral antibiotics but states patient continued to have persistent UTI symptoms. Patient states she was referred to an a infectious disease specialist but states appointment was scheduled for later this month. Patient states she continued to have have lower abdominal pelvic pain radiating to the back with persistence of UTI symptoms and was told by PCP to come to the ED for IV antibiotics. Patient in the ED otherwise has stable vitals. Patient in the ED otherwise denies any other symptoms. Chief Complaint: Urinary Time Seen by MD: 10:30 Primary Care Provider: JOSEPHINE Reviewed notes: Medications, Allergies Allergies: Coded Allergies: Cephalexin (Verified Allergy, Unknown, 07/25/25) Ciprofloxacin (Verified Allergy, Unknown, 07/25/25) Levofloxacin (Verified Allergy, Unknown, 07/25/25) Nitrofuran Derivatives (Verified Allergy, Unknown, 07/25/25) Penicillins (Verified Allergy, Unknown, 07/25/25) Phenazopyridine (Verified Allergy, Unknown, 08/28/16) Sulfa Antibiotics (Verified Allergy, Unknown, 08/28/16) Home Meds Reported Medications Etanercept (Enbrel Sureclick) 50 Mg/Ml Inj, 50 MG SC, INJ Once a week 03/05/25 Semaglutide (Wegovy) 2.4 Mg/0.75 Ml Inj, 2.4 MG SC, INJ Once a week 03/05/25 Losartan Potassium (Losartan Potassium) 25 Mg Tab, 1 TAB PO DAILY 03/05/25 Oxycodone Hcl (OxyCONTIN ER Tablet) 20 Mg Tb, 1 TAB PO BID 03/05/25 Zolpidem Tartrate (Zolpidem Tartrate) 10 Mg Tab, 1 TAB PO QHSP PRN 03/05/25 Spironolactone (Spironolactone) 25 Mg Tab, 1 TAB PO DAILY 03/05/25 Metoprolol Succinate (Metoprolol Succinate Er) 25 Mg Tab, 1 TAB PO DAILY 03/05/25 Information Source: Patient Mode of Arrival: Ambulatory Brought in by: Self Severity: Moderate Inability to void: Moderate Timing: Weeks Duration: Since onset Past Medical History PAST MEDICAL HISTORY: Anxiety, Arthritis, CHF, HTN Surgical History: Denies all surgeries FIRST OFF[employer] 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: No 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 History Family History Family History: Reviewed,noncontributory to illness, No family hx of Cancer, No family hx of DM, No family hx of Heart angelia, No family hx of HTN, No family hx ofKidney angelia, No family hx of Liver angelia, No family hx of Lung angelia, No family hx of Stroke Social History Smoker: Non-Smoker Alcohol: Denies ETOH Use Drugs: Denies Drug Use Lives In: Home Constitutional: denies: chills, diaphoresis, fatigue, fever, malaise, sweats, weakness, others EENTM: denies: blurred vision, double vision, ear bleeding, ear discharge, ear drainage, ear pain, ear ringing, eye pain, eye redness, hearing loss, mouth bj n, mouth swelling, nasal discharge, nose bleeding, nose congestion, nose pain, photophobia, tearing, throat pain, throat swelling, voice changes, others Respiratory: denies: cough, hemoptysis, orthopnea, SOB at rest, shortness of breath, SOB with excertion, stridor, wheezing, others Cardiovascular: denies: chest pain, dizzy spells, diaphoresis, Dyspnea on exertion, edema, irregular heart beat, left arm pain, lightheadedness, palpitations, PND, syncope, others Gastrointestinal: denies: abdomen distended, abdominal pain, blood streaked bowels, constipated, diarrhea, dysphagia, difficulty swallowing, hematemesis, melena, nausea, poor appetite, poor fluid intake, rectal bleeding, rectal pain, vomiting, others Genitourinary: reports: dysuria, frequency; denies: abnormal vagina bleeding, burning, dyspareunia, flank pain, hematuria, incontinence, pain, , vagina discharge, urgency, others Neurological: denies: dizziness, fainting, headache, left sided numbness, left sided weakness, numbness, paresthesia, pre-existing deficit, right sided numbness, right sided weakness, seizure, speech problems, tingling, tremors, weakness, others Musculoskeletal: denies: back pain, gout, joint pain, joint swelling, muscle pain, muscle stiffness, neck pain, others Integumetry: denies: bruises, change in color, change in hair/nails, dryness, laceration, lesions, lumps, rash, wounds, others Allergic/Immunocompromised: denies: Difficulty Healing, Frequent Infections, Hives, Itching, others Hematologic/Lymphatic: denies: anemia, blood clots, easy bleeding, easy bruising, swollen glands, others Endocrine: denies: excessive hunger, excessive sweating, excessive thirst, excessive urination, flushing, intolerance to cold, intolerance to heat, unexplained weight gain, unexplained weight loss, others Psychiatric: denies: anxiety, bipolar disorder, depression, hopeless, panic disorder, schizophrenia, sleepless, suicidal, others All Other Systems: Reviewed and Negative Physical Exam General Appearance: Moderate Distress HEENT: Normal ENT Inspection, Pharynx Normal, TMs Normal Neck: Full Range of Motion, Non-Tender, Normal, Normal Inspection Respiratory: Chest Non-Tender, Lungs Clear, No Accessory Muscle Use, No Respiratory Distress, Normal Breath Sounds Cardiovascular: No Edema, No JVD, No Murmur, No Gallop, Normal Peripheral Pulses, Regular Rate/Rhythm Breast Exam: Deferred Gastrointestinal: No Organomegaly, Non Tender, No Pulsatile Mass, Normal Bowel Sounds, Soft Genitalia: Deferred Pelvic: Deferred Rectal: Deferred Extremities: No calf tenderness, Normal capillary refill, Normal inspection, Normal range of motion, Non-tender, No pedal edema Musculoskeletal : Apperance: Normal Neurologic: Alert, transportation museum helper II-XII nml as Tested, No Motor Deficits, Normal Affect, Normal Mood, No Sensory Deficits Cerebellar Function: Normal Reflexes: Normal Skin: Dry, Normal Color, Warm Peripheral Pulses: 3+ Radial (R), 3+ Radial (L) Lymphatic: No Adenopathy Was a procedure done? Was a procedure done?: No Differential Diagnosis Kidney stone (Female): Musculoskeletal pain, Urinary obstruction, Urolithiasis Urinary Problem (Female): PID, Pyelonephritis, Urinary retention, UTI, Other (Hydronephrosis) X-Ray, Labs, Meds, VS Vital Signs Date Time Temp Pulse Resp B/P (MAP) Pulse Ox O2 Delivery O2 Flow Rate FiO2 07/25/25 11:57 72 16 161/71 (101) 100 07/25/25 10:53 78 18 141/79 (99) 99 07/25/25 10:53 79 18 99 Room Air 07/25/25 10:03 97.4 83 17 135/92 98 97.4 Lab Test 07/25/25 10:50 07/25/25 10:28 Range/Units White Blood Count 4.4 4.4-10.8 10^3/uL Red Blood Count 4.53 4.0-5.20 10^6/uL Hemoglobin 13.4 12.2-16.2 g/dL Hematocrit 38.8 36.0-46.0 % Mean Corpuscular Volume 85.6 80.0-100.0 fL Mean Corpuscular Hemoglobin 29.6 28.0-32.0 pg Mean Corpuscular Hemoglobin Concent 34.5 32.0-36.0 g/dL Red Cell Distribution Width 17.0 H 11.8-14.3 % Platelet Count 184 140-450 10^3/uL Mean Platelet Volume 7.8 6.9-10.8 fL Neutrophils (%) (Auto) 68.7 37.0-80.0 % Lymphocytes (%) (Auto) 21.5 10.0-50.0 % Monocytes (%) (Auto) 8.3 0.0-12.0 % Eosinophils (%) (Auto) 0.7 0.0-7.0 % Basophils (%) (Auto) 0.8 0.0-2.0 % Neutrophils # (Auto) 3.1 1.6-8.6 10 ^3/uL Lymphocytes # (Auto) 1.0 0.4-5.4 10 ^3/uL Monocytes # (Auto) 0.4 0-1.3 10 ^3/uL Eosinophils # (Auto) 0 0-0.8 10 ^3/uL Basophils # (Auto) 0 0-0.2 10 ^3/uL Nucleated Red Blood Cells 0.1 % Sodium Level 137 136-145 mmol/L Potassium Level 3.5 3.5-5.1 mmol/L Chloride Level 101 98-107 mmol/L Carbon Dioxide Level 29 20-31 mmol/L Anion Gap 7 5-15 Blood Urea Nitrogen 18 9-23 mg/dL Creatinine 0.74 0.550-1.02 mg/dL Glomerular Filtration Rate Calc 90 >90 mL/min BUN/Creatinine Ratio 24.3 H 10.0-20.0 Serum Glucose 74 74-106 mg/dL Calcium Level 9.0 8.7-10.4 mg/dL Urine Color Light-yellow Yellow Urine Clarity Clear Clear Urine pH 5.0 5.0-9.0 Urine Specific [place] 1.015 1.001-1.035 Urine Protein Negative Negative Urine Ketones Negative Negative Urine Blood Negative Negative /uL Urine Nitrite Negative Negative Urine Bilirubin Negative Negative Urine Urobilinogen Normal Negative mg/dL Urine Leukocyte Esterase 3+ Negative /uL Urine RBC 2 0 - 4 /hpf Urine Microscopic WBC 7 H 0-5 /HPF Urine Squamous Epithelial Cells Few <5 /hpf Urine Bacteria None seen None Seen /hpf Urine Hyaline Casts Few 0 - 2 /lpf Urine Yeast (Budding) Occasional None Seen /hpf Urine Glucose Normal Normal mg/dL Current Medications Medications (Trade) Dose Ordered Sig/Stephania Route Start Time Stop Time Status Last Admin Sodium Chloride 1,000 ml @ 1,000 mls/hr Q1H ONCE IV 07/25/25 10:30 07/25/25 11:29 DC 07/25/25 10:55 Patient alert. Came in because of urinary tract infection. Vitals stable. Answering questions. Establish intravenous access. Was given fluids. Urinalysis shows UTI. Primary care physician sent her to the ER stating that she needs intravenous antibiotics. Continue monitoring. Time of 1ST Reevaluation: 11:00 Reevaluation 1ST: Unchanged Patient Education/Counseling: Diagnosis, Treatment Family Education/Counseling: No Family Present SEPSIS Sepsis Screen Date sepsis recognized/suspect: Jul 25, 2025 Time Sepsis recognized/suspect: 1003 Recent Procedure: No On Antibiotic Therapy: Yes Respiratory Rate >20: No Heart Rate >90: No Temp<36 C (96.8 F) or >38.3 C: No SBP <90 or MAP <65 mmHG: No New Acute Mental Status Change: No Is the patient on CPAP, BIPAP,: No Physician Orders Urine Bacterial Culture (07/25/25 10:28) Vital Signs Date Time Temp Pulse Resp B/P (MAP) Pulse Ox O2 Delivery O2 Flow Rate FiO2 07/25/25 11:57 72 16 161/71 (101) 100 07/25/25 10:53 78 18 141/79 (99) 99 07/25/25 10:53 79 18 99 Room Air 07/25/25 10:03 97.4 83 17 135/92 98 97.4 Laboratory Tests Test 07/25/25 10:50 White Blood Count 4.4 10^3/uL (4.4-10.8) Medications Medications Dose Ordered Sig/Stephania Route Start Time Stop Time Status Last Admin Dose Admin Sodium Chloride 1,000 ml @ 1,000 mls/hr Q1H ONCE IV 07/25/25 10:30 07/25/25 11:29 DC 07/25/25 10:55 Departure 1 Departure Time of Disposition: 12:38 Impression: Primary Impression: Sepsis due to urinary tract infection Disposition: ADMITTED INPATIENT Admit to: Med Surg Condition: Guarded Critical Care Note Critical Care Time?: No Stability Stability form required: No Heart Score Heart Score: Heart Score Response (Comments) Value History N/A 0 EKG N/A 0 Age N/A 0 Risk Factors N/A 0 Troponin N/A 0 Total 0 I personally scribed for KARON AGUERO MD ([email or web address]) on 07/25/25 at 10:33. Electronically submitted by Aliza Shultz ([email or web address]). KARON AGUERO MD Jul 25, 2025 10:33
[2025-07-25] MEDS: SODIUM CHLORIDE 0.9% 1,000 ML IV ONE (10:55)
[2025-07-25 11:10] LABS: Hematocrit 38.8 % (36.0-46.0); Hemoglobin 13.4 g/dL (12.2-16.2); Mean Corpuscular Hemoglobin 29.6 pg (28.0-32.0); Mean Corpuscular Volume 85.6 fL (80.0-100.0); Nucleated Red Blood Cells % 0.1 %
[2025-07-25 11:19] LABS: Chloride 101 mmol/L (98-107); Sodium 137 mmol/L (136-145)
[2025-07-25 11:21] LABS: Anion Gap 7 (5-15); Calcium 9.0 mg/dL (8.7-10.4); Carbon Dioxide 29 mmol/L (20-31)
[2025-07-25 11:25] LABS: Potassium 3.5 mmol/L (3.5-5.1)
[2025-07-25 11:26] LABS: BUN/Creatinine Ratio 24.3 (10.0-20.0); Blood Urea Nitrogen 18 mg/dL (9-23); Glucose 74 mg/dL (74-106)
[2025-07-25 11:59] LABS: Urine Budding Yeast OCCASIONAL /hpf (None Seen); Urine Protein, UAD Negative (Negative)
[2025-07-25] MEDS: ERTAPENEM SOD INJ 1 GM in SODIUM CHL 0.9% 50 ML IV ONE (14:08)
[2025-07-25] MEDS ORDERED: TEMAZEPAM 15 MG CAP PO PRN (19:15)
[2025-07-25] MEDS ORDERED: ONDANSETRON HCL 4 MG/2 ML VIAL IV PRN (19:15)
[2025-07-25] MEDS ORDERED: ACETAMINOPHEN 325 MG TAB PO PRN (19:15)
[2025-07-25 19:42] LABS: Chloride 104 mmol/L (98-107); Potassium 4.0 mmol/L (3.5-5.1); Sodium 141 mmol/L (136-145)
[2025-07-25 19:43] LABS: Anion Gap 6 (5-15); Carbon Dioxide 31 mmol/L (20-31)
[2025-07-25 19:44] LABS: Calcium 9.0 mg/dL (8.7-10.4)
[2025-07-25 19:48] LABS: Glucose 85 mg/dL (74-106)
[2025-07-25 19:49] LABS: BUN/Creatinine Ratio 25.0 (10.0-20.0); Blood Urea Nitrogen 19 mg/dL (9-23)
[2025-07-25 21:30] VITALS: BP 150/83; PULSE 71; RESP 18; TEMP 98.2; O2SAT 99
[2025-07-25 22:15] VITALS: BP 150/83; PULSE 71; RESP 18; TEMP 98.2; O2SAT 99
[2025-07-26] VITALS (8 sets, daily range): BP systolic 103–135; BP diastolic 60–80; PULSE 57–79; RESP 18–20; TEMP 97.6–98.4; O2SAT 94–99
--- NOTE | 2025-07-26 00:30 | DVHHP2 ---
History of Present Illness Reason for Visit: Urinary complaints History of Present Illness 65-year-old female presents for evaluation of urinary complaints. Patient reports being treated for a persistent urinary tract infection over the past 20 days. She was seen by her primary care provider yesterday and was advised to present for further evaluation and possible admission for IV antibiotics. She reports lower abdominal/pelvic pain with dysuria and occasional chills. Past Medical History Hypertension, CHF, arthritis, and Past Surgical History Denies Family History Noncontributory Smoke: No ALCOHOL: none Drugs: None Lives: with Family Review of Systems Review of Systems Review of systems are currently negative otherwise addressed in HPI. Allergies: Coded Allergies: Cephalexin (Verified Allergy, Unknown, 07/25/25) Ciprofloxacin (Verified Allergy, Unknown, 07/25/25) Levofloxacin (Verified Allergy, Unknown, 07/25/25) Nitrofuran Derivatives (Verified Allergy, Unknown, 07/25/25) Penicillins (Verified Allergy, Unknown, 07/25/25) Phenazopyridine (Verified Allergy, Unknown, 08/28/16) Sulfa Antibiotics (Verified Allergy, Unknown, 08/28/16) Medications Current Medications Medications Dose Ordered Sig/Stephania Route Start Time Stop Time Status Last Admin Dose Admin Ertapenem 1 gm/ Sodium Chloride 50 ml @ 100 mls/hr DAILY IV 07/26/25 10:00 08/09/25 09:59 Losartan Potassium 25 mg DAILY PO 07/26/25 10:00 Metoprolol Succinate 25 mg DAILY PO 07/26/25 10:00 Spironolactone 25 mg DAILY PO 07/26/25 10:00 Acetaminophen/ Hydrocodone Bitart 1 tab Q4HP PRN PO 07/25/25 19:15 Temazepam 15 mg QHSP PRN PO 07/25/25 19:15 Ondansetron HCl 4 mg Q4HP PRN IV 07/25/25 19:15 Acetaminophen 650 mg Q6HP PRN PO 07/25/25 19:15 Exam Vital Signs Vital Signs Date Time Temp Pulse Resp B/P (MAP) Pulse Ox O2 Delivery O2 Flow Rate FiO2 07/25/25 21:30 98.2 71 18 150/83 (105) 99 98.2 07/25/25 10:53 Room Air Exam Gen: 65-year-old female in mild distress Skin: Warm, dry, normal color and texture, no rash. HEENT: Normocephalic atraumatic, mucous membranes moist and pink. Neck: Cervical and supraclavicular nodes normal without enlargement, trachea is midline, thyroid gland is normal without masses. Pulmonary: Clear to auscultation and percussion bilaterally. Cardiac: Regular rate and rhythm. No murmur Abdomen: Soft, nontender, nondistended, bowel sounds present all 4 quadrants, no guarding, no rigidity, no organomegaly. Extremities: No cyanosis, clubbing, no edema Neuro: Cranial nerves II through XII grossly intact, normal affect and speech, no focal motor deficits. Labs/Xrays Labs Test 07/25/25 19:24 07/25/25 10:50 07/25/25 10:28 Range/Units Sodium Level 141 136-145 mmol/L Potassium Level 4.0 3.5-5.1 mmol/L Chloride Level 104 98-107 mmol/L Carbon Dioxide Level 31 20-31 mmol/L Anion Gap 6 5-15 Blood Urea Nitrogen 19 9-23 mg/dL Creatinine 0.76 0.550-1.02 mg/dL Glomerular Filtration Rate Calc 87 >90 mL/min BUN/Creatinine Ratio 25.0 H 10.0-20.0 Serum Glucose 85 74-106 mg/dL Calcium Level 9.0 8.7-10.4 mg/dL White Blood Count 4.4 4.4-10.8 10^3/uL Red Blood Count 4.53 4.0-5.20 10^6/uL Hemoglobin 13.4 12.2-16.2 g/dL Hematocrit 38.8 36.0-46.0 % Mean Corpuscular Volume 85.6 80.0-100.0 fL Mean Corpuscular Hemoglobin 29.6 28.0-32.0 pg Mean Corpuscular Hemoglobin Concent 34.5 32.0-36.0 g/dL Red Cell Distribution Width 17.0 H 11.8-14.3 % Platelet Count 184 140-450 10^3/uL Mean Platelet Volume 7.8 6.9-10.8 fL Neutrophils (%) (Auto) 68.7 37.0-80.0 % Lymphocytes (%) (Auto) 21.5 10.0-50.0 % Monocytes (%) (Auto) 8.3 0.0-12.0 % Eosinophils (%) (Auto) 0.7 0.0-7.0 % Basophils (%) (Auto) 0.8 0.0-2.0 % Neutrophils # (Auto) 3.1 1.6-8.6 10 ^3/uL Lymphocytes # (Auto) 1.0 0.4-5.4 10 ^3/uL Monocytes # (Auto) 0.4 0-1.3 10 ^3/uL Eosinophils # (Auto) 0 0-0.8 10 ^3/uL Basophils # (Auto) 0 0-0.2 10 ^3/uL Nucleated Red Blood Cells 0.1 % Urine Color Light-yellow Yellow Urine Clarity Clear Clear Urine pH 5.0 5.0-9.0 Urine Specific [place] 1.015 1.001-1.035 Urine Protein Negative Negative Urine Ketones Negative Negative Urine Blood Negative Negative /uL Urine Nitrite Negative Negative Urine Bilirubin Negative Negative Urine Urobilinogen Normal Negative mg/dL Urine Leukocyte Esterase 3+ Negative /uL Urine RBC 2 0 - 4 /hpf Urine Microscopic WBC 7 H 0-5 /HPF Urine Squamous Epithelial Cells Few <5 /hpf Urine Bacteria None seen None Seen /hpf Urine Hyaline Casts Few 0 - 2 /lpf Urine Yeast (Budding) Occasional None Seen /hpf Urine Glucose Normal Normal mg/dL SEPSIS Sepsis Screen Date sepsis recognized/suspect: Jul 25, 2025 Time Sepsis recognized/suspect: 1003 Recent Procedure: No On Antibiotic Therapy: Yes Respiratory Rate >20: No Heart Rate >90: No Temp<36 C (96.8 F) or >38.3 C: No SBP <90 or MAP <65 mmHG: No New Acute Mental Status Change: No Is the patient on CPAP, BIPAP,: No Physician Orders Losartan Tablet (Cozaar Tablet) (07/26/25 10:00) Metoprolol Xl Succinate (Toprol Xl) (07/26/25 10:00) Spironolactone (Aldactone) (07/26/25 10:00) Admit (07/25/25 19:13) Hydrocodone-Acet 5/325mg Tab ([place] /32 (07/25/25 19:15) Temazepam (Restoril) (07/25/25 19:15) Ondansetron Hcl (Zofran) (07/25/25 19:15) Complete Blood Count (07/26/25 04:00) Cardiac Diet-2gna,Lofat,Lochol (07/26/25 Breakfast) Condition: Stable (07/25/25 19:13) Acetaminophen Tablet (Tylenol Tablet) (07/25/25 19:15) Bedrest With Bathroom Privileg (07/25/25 19:13) Vital Signs Date Time Temp Pulse Resp B/P (MAP) Pulse Ox O2 Delivery O2 Flow Rate FiO2 07/25/25 21:30 98.2 71 18 150/83 (105) 99 98.2 07/25/25 17:52 76 18 125/73 (90) 99 Medications Medications Dose Ordered Sig/Stephania Route Start Time Stop Time Status Last Admin Dose Admin Ertapenem 1 gm/ Sodium Chloride 50 ml @ 50 mls/hr ONCE ONCE IV 07/25/25 13:00 07/25/25 13:59 DC 07/25/25 14:08 50 MLS/HR Assessment/Plan Assessment/Plan Assessment Complicated UTI Hypertension Plan Admit the patient to [facility] [place] to the hospitalist Ertapenem Urine bacterial culture pending Resume home medications Continue treatment per orders. Plan discussed with: Patient My Orders Orders - XIMENA CONNOLLY Procedure Category Date Status Time Losartan Tablet PHA 07/26/25 In Process (Cozaar Tablet) 10:00 Metoprolol Xl PHA 07/26/25 In Process Succinate (Toprol Xl) 10:00 Spironolactone PHA 07/26/25 In Process (Aldactone) 10:00 Admit ADMIT 07/25/25 Transmitted 19:13 Hydrocodone-Acet PHA 07/25/25 In Process 5/325mg Tab ([place]aughlin 19:15 Temazepam (Restoril) PHA 07/25/25 In Process 19:15 Ondansetron Hcl PHA 07/25/25 In Process (Zofran) 19:15 Complete Blood Count LAB 07/26/25 Logged 04:00 Cardiac DIET 07/26/25 Transmitted Diet-2gna,Lofat,Lochol Breakfast Condition: Stable [place] 07/25/25 In Process 19:13 Acetaminophen Tablet PHA 07/25/25 In Process (Tylenol Tablet) 19:15 Bedrest With Bathroom [place] 07/25/25 In Process Privileg 19:13 Date of Service: Jul 25, 2025 Billing Provider: XIMENA CONNOLLY Common Visit Codes: [id number] INP/OBS CARE (MOD) XIMENA CONNOLLY Jul 26, 2025 00:30
[2025-07-26 06:28] LABS: Hematocrit 35.9 % (36.0-46.0); Hemoglobin 12.5 g/dL (12.2-16.2); Mean Corpuscular Hemoglobin 29.5 pg (28.0-32.0); Mean Corpuscular Volume 85.1 fL (80.0-100.0); Nucleated Red Blood Cells % 0.1 %
[2025-07-26] MEDS: LOSARTAN POTASSIUM 25 MG TAB PO SCH (10:00)
[2025-07-26] MEDS: METOPROLOL SUCCINATE XL 50 MG TAB PO SCH (10:00)
[2025-07-26] MEDS: SPIRONOLACTONE 25 MG TAB PO SCH (10:08)
[2025-07-26] MEDS: ERTAPENEM SOD INJ 1 GM in SODIUM CHL 0.9% 50 ML IV SCH (12:27)
--- NOTE | 2025-07-26 14:01 | DVHPN2 ---
Reviewed: H&P Changes from previous H/P or p: No Changes General: Per HPI Objective Vitals Vital Signs Date Time Temp Pulse Resp B/P (MAP) Pulse Ox O2 Delivery O2 Flow Rate FiO2 07/26/25 10:00 79 103/60 07/26/25 09:00 97.6 18 98 97.6 07/25/25 22:15 Room Air* 0 21 Intake/Output Intake and Output 07/26/25 07:00 Intake Total 200 ml Balance 200 ml Intake Oral 200 ml # Voids 1 Exam Gen: 65-year-old female in mild distress Skin: Warm, dry, normal color and texture, no rash. HEENT: Normocephalic atraumatic, mucous membranes moist and pink. Neck: Cervical and supraclavicular nodes normal without enlargement, trachea is midline, thyroid gland is normal without masses. Pulmonary: Clear to auscultation and percussion bilaterally. Cardiac: Regular rate and rhythm. No murmur Abdomen: Soft, nontender, nondistended, bowel sounds present all 4 quadrants, no guarding, no rigidity, no organomegaly. Extremities: No cyanosis, clubbing, no edema Neuro: Cranial nerves II through XII grossly intact, normal affect and speech, no focal motor deficits. Medications Current Medications Medications Dose Ordered Sig/Stephania Route Start Time Stop Time Status Last Admin Dose Admin Ertapenem 1 gm/ Sodium Chloride 50 ml @ 100 mls/hr DAILY IV 07/26/25 10:00 08/09/25 09:59 07/26/25 12:27 100 MLS/HR Losartan Potassium 25 mg DAILY PO 07/26/25 10:00 Metoprolol Succinate 25 mg DAILY PO 07/26/25 10:00 Spironolactone 25 mg DAILY PO 07/26/25 10:00 07/26/25 10:08 25 MG Acetaminophen/ Hydrocodone Bitart 1 tab Q4HP PRN PO 07/25/25 19:15 Temazepam 15 mg QHSP PRN PO 07/25/25 19:15 Ondansetron HCl 4 mg Q4HP PRN IV 07/25/25 19:15 Acetaminophen 650 mg Q6HP PRN PO 07/25/25 19:15 Laboratory Results Laboratory Tests 07/25/25 19:24 07/26/25 05:01 Chemistry Test 07/25/25 19:24 Calcium Level 9.0 mg/dL (8.7-10.4) Urinalysis Test 07/25/25 10:28 Urine Color Light-yellow (Yellow) Urine Clarity Clear (Clear) Urine pH 5.0 (5.0-9.0) Urine Specific [place] 1.015 (1.001-1.035) Urine Protein Negative (Negative) Urine Ketones Negative (Negative) Urine Blood Negative /uL (Negative) Urine Nitrite Negative (Negative) Urine Bilirubin Negative (Negative) Urine Urobilinogen Normal mg/dL (Negative) Urine Leukocyte Esterase 3+ /uL (Negative) Urine RBC 2 /hpf (0 - 4) Urine Microscopic WBC 7 /HPF (0-5) H Urine Squamous Epithelial Cells Few /hpf (<5) Urine Bacteria None seen /hpf (None Seen) Urine Hyaline Casts Few /lpf (0 - 2) Urine Yeast (Budding) Occasional /hpf (None Urine Glucose Normal mg/dL (Normal) Microbiology Microbiology Date/Time Source Procedure Growth Status 07/25/25 10:28 Voided Urine Urine Culture - Preliminary Resulted Labs and/or images reviewed: Labs reviewed by me, Image(s) reviewed by me Assessment/Plan Assessment/Plan 65-year-old female presents for evaluation of urinary complaints. Patient reports being treated for a persistent urinary tract infection over the past 20 days. She was seen by her primary care provider yesterday and was advised to present for further evaluation and possible admission for IV antibiotics. She reports lower abdominal/pelvic pain with dysuria and occasional chills. Past Medical History Hypertension, CHF, arthritis, 07/26: Patient recurrent UTI, this time UA borderline concerning, urine culture less than 10 K colonies, multiple drug allergies, currently on Invanz, no history of urine cultures. Given multiple failures and multiple allergies to, antibiotics, we will have to electively treat with broad-spectrum Invanz at home. We will consult home health for IV antibiotics Invanz 1 g daily for 7 days. Patient can follow up with ID and Urology outpatient. Also having chronic lower back pain, we will start baclofen 10 mg p.o. b.i.d., continue prn analgesia. Patient has multiple allergies to keep antibiotics in likely needs specialist collar folder operator review, outpt. Diagnosis: Complicated UTI, Acute on chronic Hypertension CHF, on palliative care Arthritis Plan: Continue home meds Continue Invanz IV antibiotic Social order for home antibiotics Midline order for line placement Baclofen 10 mg p.o. b.i.d. Med surge Full code Plan discussed with: Patient Date of Service: Jul 26, 2025 Billing Provider: PORTILLO MCCOY MD Common Visit Codes: 93932-[id number] INP/OBS CARE(HIGH) PORTILLO MCCOY MD Jul 26, 2025 14:01
[2025-07-26] MEDS: HYDROcodone-ACET 5/325MG TAB PO PRN (20:41)
[2025-07-27 01:10] VITALS: BP 104/63; PULSE 69; RESP 18; TEMP 97.7; O2SAT 98
[2025-07-27 05:14] VITALS: BP 111/75; PULSE 67; RESP 17; TEMP 97.4; O2SAT 100
[2025-07-27 05:58] LABS: Hematocrit 37.7 % (36.0-46.0); Hemoglobin 13.2 g/dL (12.2-16.2); Mean Corpuscular Hemoglobin 29.9 pg (28.0-32.0); Mean Corpuscular Volume 85.6 fL (80.0-100.0); Nucleated Red Blood Cells % 0.2 %
[2025-07-27 06:20] LABS: Alanine Aminotransferase 15 U/L (7-40); Albumin 4.1 g/dL (3.2-4.8); Alkaline Phosphatase 63 U/L (46-116); Anion Gap 9 (5-15); BUN/Creatinine Ratio 16.9 (10.0-20.0); Blood Urea Nitrogen 12 mg/dL (9-23); Calcium 8.9 mg/dL (8.7-10.4); Carbon Dioxide 27 mmol/L (20-31); Chloride 104 mmol/L (98-107); Glucose 96 mg/dL (74-106); Potassium 3.8 mmol/L (3.5-5.1); Sodium 140 mmol/L (136-145); Total Protein 6.6 g/dL (5.7-8.2)
[2025-07-27 06:21] LABS: Bilirubin, Total 1.7 mg/dL (0.2-1.0)
[2025-07-27 09:29] VITALS: BP 96/63; PULSE 82; RESP 18; TEMP 97.6; O2SAT 97
[2025-07-27 13:00] VITALS: BP 110/69; PULSE 82; RESP 20; TEMP 97.7; O2SAT 98
[2025-07-27] MEDS: ALPRAZolam 0.5 MG TAB PO PRN (15:16)
[2025-07-27 17:00] VITALS: BP 103/58; PULSE 68; RESP 20; TEMP 97.8; O2SAT 96
--- NOTE | 2025-07-28 11:08 | DVHDS2 ---
Discharge Summary Date of Admission Jul 25, 2025 at 19:13 Date of Discharge: Jul 27, 2025 Labs/Diagnostic Data: Laboratory Results Test 07/27/25 04:53 07/25/25 10:28 White Blood Count 2.8 10^3/uL (4.4-10.8) Red Blood Count 4.40 10^6/uL (4.0-5.20) Hemoglobin 13.2 g/dL (12.2-16.2) Hematocrit 37.7 % (36.0-46.0) Mean Corpuscular Volume 85.6 fL (80.0-100.0) Mean Corpuscular Hemoglobin 29.9 pg (28.0-32.0) Mean Corpuscular Hemoglobin Concent 34.9 g/dL (32.0-36.0) Red Cell Distribution Width 16.9 % (11.8-14.3) Platelet Count 162 10^3/uL (140-450) Mean Platelet Volume 7.9 fL (6.9-10.8) Neutrophils (%) (Auto) 63.2 % (37.0-80.0) Lymphocytes (%) (Auto) 24.8 % (10.0-50.0) Monocytes (%) (Auto) 10.5 % (0.0-12.0) Eosinophils (%) (Auto) 1.0 % (0.0-7.0) Basophils (%) (Auto) 0.5 % (0.0-2.0) Neutrophils # (Auto) 1.8 10 ^3/uL (1.6-8.6) Lymphocytes # (Auto) 0.7 10 ^3/uL (0.4-5.4) Monocytes # (Auto) 0.3 10 ^3/uL (0-1.3) Eosinophils # (Auto) 0 10 ^3/uL (0-0.8) Basophils # (Auto) 0 10 ^3/uL (0-0.2) Nucleated Red Blood Cells 0.2 % Sodium Level 140 mmol/L (136-145) Potassium Level 3.8 mmol/L (3.5-5.1) Chloride Level 104 mmol/L (98-107) Carbon Dioxide Level 27 mmol/L (20-31) Anion Gap 9 (5-15) Blood Urea Nitrogen 12 mg/dL (9-23) Creatinine 0.71 mg/dL (0.550-1.02) Glomerular Filtration Rate Calc 95 mL/min (>90) BUN/Creatinine Ratio 16.9 (10.0-20.0) Serum Glucose 96 mg/dL (74-106) Calcium Level 8.9 mg/dL (8.7-10.4) Total Bilirubin 1.7 mg/dL (0.2-1.0) Aspartate Amino Transferase (AST) 17 U/L (13-40) Alanine Aminotransferase (ALT) 15 U/L (7-40) Alkaline Phosphatase 63 U/L (46-116) Total Protein 6.6 g/dL (5.7-8.2) Albumin 4.1 g/dL (3.2-4.8) Urine Color Light-yellow (Yellow) Urine Clarity Clear (Clear) Urine pH 5.0 (5.0-9.0) Urine Specific [place] 1.015 (1.001-1.035) Urine Protein Negative (Negative) Urine Ketones Negative (Negative) Urine Blood Negative /uL (Negative) Urine Nitrite Negative (Negative) Urine Bilirubin Negative (Negative) Urine Urobilinogen Normal mg/dL (Negative) Urine Leukocyte Esterase 3+ /uL (Negative) Urine RBC 2 /hpf (0 - 4) Urine Microscopic WBC 7 /HPF (0-5) Urine Squamous Epithelial Cells Few /hpf (<5) Urine Bacteria None seen /hpf (None Seen) Urine Hyaline Casts Few /lpf (0 - 2) Urine Yeast (Budding) Occasional /hpf (None Urine Glucose Normal mg/dL (Normal) Other Laboratory Tests 07/27/25 04:53 Brief Hx & Hospital Course: 65-year-old female presents for evaluation of urinary complaints. Patient reports being treated for a persistent urinary tract infection over the past 20 days. She was seen by her primary care provider yesterday and was advised to present for further evaluation and possible admission for IV antibiotics. She reports lower abdominal/pelvic pain with dysuria and occasional chills. Past Medical History Hypertension, CHF, arthritis, 07/26: Patient recurrent UTI, this time UA borderline concerning, urine culture less than 10 K colonies, multiple drug allergies, currently on Invanz, no history of urine cultures. Given multiple failures and multiple allergies to, antibiotics, we will have to electively treat with broad-spectrum Invanz at home. We will consult home health for IV antibiotics Invanz 1 g daily for 7 days. Patient can follow up with ID and Urology outpatient. Also having chronic lower back pain, we will start baclofen 10 mg p.o. b.i.d., continue prn analgesia. Patient has multiple allergies to keep antibiotics in likely needs specialist barrel waterer review, outpt. 07/27: Patient doing well, plan for midline and social to order IV antibiotics. Vital signs stable, tolerating p.o. well, stable for discharge as per plan below. Diagnosis: Complicated UTI, recurrent, Acute on chronic, unable to rule out MDRO Hypertension CHF, on palliative care Arthritis Multiple drug allergies Plan: - continue plan for Invanz 1 g daily for 7 days through midline. Continue home health for help with IV antibiotics - continue other home medications not mentioned above - followup with PCP to review discharge Condition at Discharge: Fair Final Diagnosis/Problems List Complicated UTI, recurrent, Acute on chronic, unable to rule out MDRO Hypertension CHF, on palliative care Arthritis Multiple drug allergies Discharge Disposition: Home with Health Services Discharge Instruct/Medications Scheduled Losartan Potassium (Losartan Potassium), 1 TAB PO DAILY, (Reported) Metoprolol Succinate (Metoprolol Succinate Er), 1 TAB PO DAILY, (Reported) Oxycodone Hcl (OxyCONTIN ER Tablet), 1 TAB PO BID, (Reported) Spironolactone (Spironolactone), 1 TAB PO DAILY, (Reported) Scheduled PRN Zolpidem Tartrate (Zolpidem Tartrate), 1 TAB PO QHSP PRN, (Reported) Miscellaneous Medications Etanercept (Enbrel Sureclick), 50 MG SC, (Reported) Semaglutide (Wegovy), 2.4 MG SC, (Reported) Discharge Statement: "Patient was advised to return to the ER or call 911 if any headaches, dizziness, shortness of breath, chest pain, abdominal pain, bleeding, fevers, or worsening of medical condition. Patient was counseled about treatment plan, medications, possible side effects, patientverbalized understanding. All questions were answered to the best of my ability. This discharge took greater then 30 minutes in planning, reviewing documentation, counseling the patient, and discussing with other team members." ASSESSMENT ASSESSMENT Assessment Date of Service: Jul 27, 2025 Billing Provider: PORTILLO MCCOY MD Common Visit Codes: 93728-SFL/OBS DISCH DAY >30min PORTILLO MCCOY MD Jul 27, 2025 11:02
== END 2025-07-27 17:29 | disposition home health service (06) | DRG 463 ==
LOC: ER 10:02 → OVERFLOW 19:13 → WEST WING 21:12
PROVIDERS: ADMIT Student in an Organized Health Care Education/Training Program; ATTEND Student in an Organized Health Care Education/Training Program
PROC: 05HD33Z Insertion of Infusion Device into Right Cephalic Vein, Percutaneous Approach (ICD-10-PCS; principal; 2025-07-27)
PROC: B54MZZA Ultrasonography of Right Upper Extremity Veins, Guidance (ICD-10-PCS; 2025-07-27)
DX: N39.0 Urinary tract infection, site not specified (principal); Z51.5 Encounter for palliative care; I11.0 Hypertensive heart disease with heart failure; I50.9 Heart failure, unspecified; F41.9 Anxiety disorder, unspecified; G89.29 Other chronic pain; M19.09 Primary osteoarthritis, other specified site; Z88.0 Allergy status to penicillin; Z88.1 Allergy status to other antibiotic agents; Z79.899 Other long term (current) drug therapy; Z16.24 Resistance to multiple antibiotics
CPT/HCPCS: 36415; 80048; 80053; 81001; 85025; 87086; 96361; 96365; G0378; J1335

== ENCOUNTER 2025-08-01 11:25 | Emergency (ER) | payer MEDICAID ==
[~2025-08-01] VITALS: Ht 167.6 cm; Wt 66.8 kg
--- NOTE | 2025-08-01 12:39 | ED.PDOC ---
GI ASSESSMENT HPI Comments HPI: 65 y/o F, presents to the ED for CC of abdominal pain. Patient states, she has been experiencing RUQ abdominal pain sudden onset, 0100 today (08/01/25). Patient relays, home health nurse instructed her to follow up with the ED d/t "swelling" of the RUQ area; upon palpation no swelling is noted at this time. Patient further relays, symptoms of lumbosacral "belt" like back pain. Patient denies nausea, vomiting, diarrhea, fever, chills, chest pain, or shortness of breath. No other symptoms or modifying factors are present at this time. Initial Vitals BP: HR: RR: O2 Sat: Temp: Past Medical history: UTI, CHF, HTN, ARTHRITIS, ANXIETY Past Surgical history: RIGHT ROTATER CUFF, TUBAL LIGATION Medications: Social History: Denies smoking, ETOH, and drug use. Allergies: NKDA GARCIA: HPI: Poor Historian. RIGHT UPPER QUADRANT PAIN AND LUMBOSACRAL PAIN BELT DISTRIBUTION. DENIES ANY FALL OR TRAUMA. Patient is already on IV antibiotics at home for UTI. REVIEW OF SYSTEMS: CONSTITUTIONAL: Denies acute: fever, diaphoresis, chills, generalized weakness. HEAD: Denies acute: headache, photophobia Eyes: Denies acute: Double vision, vision loss, eye pain, eye discharge. EARS: Denies acute: tinnitus, hearing loss, ear discharge, ear pain, THROAT: Denies acute: sore throat, swelling, difficulty swallowing , pain with swallowing, change in voice. NECK: Denies acute: neck pain, neck swelling, stiff neck. HEART: Denies acute : chest pain, palpitations, LUNGS: Denies acute: SOB, wheezing, cough, hemoptysis ABDOMEN: Denies acute: Nausea, Vomiting, diarrhea, melena , hematemesis, hematochezia SKIN: Denies acute: rash, redness, lesions, itchiness. EXTREMITIES: Denies acute: calf pain, numbness, tingling, weakness, denies pain in extremity. Neuro: Denies acute: focal neurological deficit, motor or sensory focal neurological deficit, tremors, seizure like activity, confusion, dizziness, change in mental status, loss of bowel or bladder function, cauda equina like symptoms. : Denies acute: dysuria, hematuria, flank pain, increase in urinary frequency. PSYCH: Denies acute: hallucination, suicidal ideation, homicidal ideation. FEMALE: Denies acute: abnormal vaginal bleeding, foul odor, unusual discharge. PHYSICAL EXAM: General: -----MILD---acute distress, awake and alert. Head: normocephalic, atraumatic. No raccoon's eyes, no tineo sign. Neck: supple, trachea is midline, no swelling. Throat: Normal phonation. Eyes:, no erythema, no purulent discharge, no proptosis, no icterus. Heart: regular rate, regular rhythm, no significant murmur appreciated. Lungs: no apparent respiratory distress, Able to speak in full sentences. No wheezing, no rhonchi, no crackles. No stridors Clear to auscultation bilaterally. Abdomen: RIGHT UPPER QUADRANT tender to palpation, non distended, soft, no guarding, no rebound, + bowel sounds. Neuro: Awake, Alert, oriented to name, self, situation, follows commands GCS=15. Speech is normal. Skin: no petechia, no purpura, no cyanosis, non-pale, not jaundice. Lower extremities: --no - Pitting edema no deformity, no focal swelling, no calf TTP. Makes eye contact. moves all four extremities. No CVA tenderness to percussion bilaterally. Ambulating in the ED independently. ED COURSE: DISCLAIMER: This medical document was created using an electronic medical record system with voice recognition software and computerized dictation system. Although this document has been carefully reviewed, there might still be some phonetic and typographical errors. Occasional wrong-word or "sound-alike" substitutions may have occurred due to the inherent limitations of voice recognition software. These areas are purely typographical due to imperfections of the software programs and do not reflect any compromise in the patient's medical care. Please read the chart carefully and recognize, using context, where these substitutions have occurred. Chief Complaint: Abdominal Pain Time Seen by MD: 12:30 Primary Care Provider: JOSEPHINE Reviewed Notes: Nurses Notes, Medications, Allergies Allergies: Coded Allergies: Cephalexin (Verified Allergy, Unknown, 07/25/25) Ciprofloxacin (Verified Allergy, Unknown, 07/25/25) Diphenhydramine (Verified Allergy, Unknown, 08/01/25) Levofloxacin (Verified Allergy, Unknown, 07/25/25) Nitrofuran Derivatives (Verified Allergy, Unknown, 07/25/25) Penicillins (Verified Allergy, Unknown, 07/25/25) Phenazopyridine (Verified Allergy, Unknown, 08/28/16) Sulfa Antibiotics (Verified Allergy, Unknown, 08/28/16) Home Meds Reported Medications Etanercept (Enbrel Sureclick) 50 Mg/Ml Inj, 50 MG SC, INJ Once a week 03/05/25 Semaglutide (Wegovy) 2.4 Mg/0.75 Ml Inj, 2.4 MG SC, INJ Once a week 03/05/25 Losartan Potassium (Losartan Potassium) 25 Mg Tab, 1 TAB PO DAILY 03/05/25 Oxycodone Hcl (OxyCONTIN ER Tablet) 20 Mg Tb, 1 TAB PO BID 03/05/25 Zolpidem Tartrate (Zolpidem Tartrate) 10 Mg Tab, 1 TAB PO QHSP PRN 03/05/25 Spironolactone (Spironolactone) 25 Mg Tab, 1 TAB PO DAILY 03/05/25 Metoprolol Succinate (Metoprolol Succinate Er) 25 Mg Tab, 1 TAB PO DAILY 03/05/25 Information Source: Patient Mode of Arrival: Ambulatory Timing: Hours Duration: Since onset Prehospital treatment: None Vomitus: None Stool: Normal Severity: Moderate Recent: None Recent Hx of: None Pain Location: RUQ Modifying Factors: Nothing Associated sign and symptoms: Abdominal Pain Was a procedure done? Was a procedure done?: No GI differential Dx Differential Diagnosis: Constipation, Diverticular disease, Inflammatory BD, UTI, Urolithiasis, Other (DDX include Diverticulitis, colitis, gastroenteritis, acute abdomen, SBO, enteritis, constipation, volvulus, appendicitis, Gallbladder disease, choledocolithiasis, ascending cholangitis, pancreatitis, intraAbdominal mass/neoplasm, hepatitis, UTI, pylonephritis, kidney stone, aneurysm, dissection, Inflammatory bowel disease, gastroparesis, ischemic bowel,,,,,,Food poisoning, bacterial/parasitic/viral etiology, trauma, diabetes DKA, ) X-Ray, Labs, Meds, VS Vital Signs Date Time Temp Pulse Resp B/P (MAP) Pulse Ox O2 Delivery O2 Flow Rate FiO2 08/01/25 15:01 97.8 77 16 132/71 (91) 99 97.8 08/01/25 11:52 Room Air* 0 21 08/01/25 11:49 97.5 76 16 111/71 (84) 98 97.5 08/01/25 11:27 97.9 87 16 143/92 99 97.9 Lab Test 08/01/25 12:20 08/01/25 11:49 Range/Units White Blood Count 3.4 L 4.4-10.8 10^3/uL Red Blood Count 4.76 4.0-5.20 10^6/uL Hemoglobin 14.0 12.2-16.2 g/dL Hematocrit 41.0 36.0-46.0 % Mean Corpuscular Volume 86.0 80.0-100.0 fL Mean Corpuscular Hemoglobin 29.5 28.0-32.0 pg Mean Corpuscular Hemoglobin Concent 34.3 32.0-36.0 g/dL Red Cell Distribution Width 17.1 H 11.8-14.3 % Platelet Count 186 140-450 10^3/uL Mean Platelet Volume 7.7 6.9-10.8 fL Neutrophils (%) (Auto) 66.0 37.0-80.0 % Lymphocytes (%) (Auto) 23.1 10.0-50.0 % Monocytes (%) (Auto) 9.9 0.0-12.0 % Eosinophils (%) (Auto) 0.5 0.0-7.0 % Basophils (%) (Auto) 0.5 0.0-2.0 % Neutrophils # (Auto) 2.3 1.6-8.6 10 ^3/uL Lymphocytes # (Auto) 0.8 0.4-5.4 10 ^3/uL Monocytes # (Auto) 0.3 0-1.3 10 ^3/uL Eosinophils # (Auto) 0 0-0.8 10 ^3/uL Basophils # (Auto) 0 0-0.2 10 ^3/uL Nucleated Red Blood Cells 0.1 % Sodium Level 139 136-145 mmol/L Potassium Level 3.8 3.5-5.1 mmol/L Chloride Level 103 98-107 mmol/L Carbon Dioxide Level 27 20-31 mmol/L Anion Gap 9 5-15 Blood Urea Nitrogen 9 9-23 mg/dL Creatinine 0.70 0.550-1.02 mg/dL Glomerular Filtration Rate Calc 97 >90 mL/min BUN/Creatinine Ratio 12.9 10.0-20.0 Serum Glucose 80 74-106 mg/dL Lactic Acid Level 0.5 0.4-2.0 mmol/L Calcium Level 9.3 8.7-10.4 mg/dL Total Bilirubin 2.3 H 0.2-1.0 mg/dL Aspartate Amino Transferase (AST) 22 13-40 U/L Alanine Aminotransferase (ALT) 16 7-40 U/L Alkaline Phosphatase 76 46-116 U/L Total Protein 7.6 5.7-8.2 g/dL Albumin 4.6 3.2-4.8 g/dL Lipase 75 H 12-53 U/L Urine Color Light-yellow Yellow Urine Clarity Clear Clear Urine pH 5.0 5.0-9.0 Urine Specific [place] 1.012 1.001-1.035 Urine Protein Negative Negative Urine Ketones Negative Negative Urine Blood Negative Negative /uL Urine Nitrite Negative Negative Urine Bilirubin Negative Negative Urine Urobilinogen Normal Negative mg/dL Urine Leukocyte Esterase 2+ Negative /uL Urine RBC 3 0 - 4 /hpf Urine Microscopic WBC 12 H 0-5 /HPF Urine Squamous Epithelial Cells Few <5 /hpf Urine Bacteria Few H None Seen /hpf Urine Mucus Few None Seen Urine Glucose Normal Normal mg/dL Current Medications Medications (Trade) Dose Ordered Sig/Stephania Route Start Time Stop Time Status Last Admin Acetaminophen/ Hydrocodone Bitart ([place] 5/325MG Tab) 1 tab ONCE ONCE PO 08/01/25 15:00 08/01/25 15:06 DC 08/01/25 15:05 [place] [address] Ph: [phone] DIAGNOSTIC IMAGING Diagnostic Imaging Report : [id number] Signed PATIENT: CYRUS GARCIA ACCT: [id number] UNIT: [id number] : 1960 LOC: ER ROOM / BED: / AGE / SEX: 65 / F ADM STATUS: REG ER SERVICE [id number] ORDERING PHYSICIAN: BI SAN DO PROCEDURE(s): ABPL - CT AB PEL WO CON-NO ORAL OR IV REASON: low back pain, UTI, RUQ pain ORDER NUMBER(s): [id number], ACCESSION NUMBER(s): [id number] EXAM: CT CT AB PEL WO CON-NO ORAL OR IV HISTORY: low back pain, UTI, RUQ pain COMPARISON: None TECHNIQUE: Helical CT images of the abdomen and pelvis were performed without IV contrast. Sagittal and coronal reformatted images were obtained. This CT exam was performed using one or more of the following dose reduction techniques: Automated exposure control, adjustment of the mA and/or kv according to patient size, or the use of iterative reconstruction techniques. Radiation Dose: Abdomen/Pelvis: CTDIvol 11.99 mGy, DLP 663.92 mGy*cm. FINDINGS: CT abdomen: There is pectus excavatum deformity of the lower chest. There is a 3 mm right lower lobe noncalcified pulmonary nodule (image 7, series 5).. The heart is not enlarged. There are coronary artery calcifications. There is a right hepatic simple cyst. The noncontrast spleen, gallbladder, pancreas, kidneys, and adrenal glands are unremarkable. No abdominal aortic aneurysm. There is a left upper quadrant splenule. CT pelvis: No abnormal bowel dilatation, free air, or free fluid. There are descending and sigmoid colon diverticula without evidence of acute diver ticulitis. There is fecal retention in the ascending colon and transverse colon. There is fecalization of the terminal ileum. The appendix and urinary bladder are unremarkable. Intrauterine device appears to be positioned too far anterior in the uterus (image 75, series 602; images 144-152, series 5). There are postoperative changes of section surgery. There may be a posterior uterine fibroid versus artifactual appearance. There are multiple phleboliths in the pelvis. There is moderate lumbar and lower thoracic degenerative disc disease and facet arthropathy. There is qinb-xs-uzaufabp spinal canal stenosis at every disc level L2-L5. There is significant neural foraminal stenosis bilaterally at L5-S1. There is a chronic mild superior endplate compression fracture of T12 versus appearance due to prominent Schmorl's node. IMPRESSION: 1. Coronary artery disease. 2. 3 mm right lower lobe noncalcified pulmonary nodule. Recommend follow-up according to Fleischner society guidelines 3. Fecal retention in the proximal to mid colon suggestive of constipation. 4. Descending and sigmoid colon diverticula without evidence of acute diverticulitis. 5. IUD appears to be positioned too far anterior. Recommend gynecology consultation for appropriate management. 6. Moderate lumbar degenerative disc disease and facet arthropathy with significant neural foraminal stenosis bilaterally at L5-S1 and vvlw-xf-tgaowziv spinal canal stenosis at every disc level L2-L5. This may be better characterized with noncontrast MRI of the lumbar spine on an outpatient basis, especially if the patient complains of lower extremity radicular symptoms. 7. No evidence of bowel obstruction, acute appendicitis, or other acute process in the abdomen or pelvis. ATED BY: SANGEETHA SALEH MD DICTATED DATE/TIME: 08/01/25 1237 SIGNED BY: SANGEETHA SALEH MD SIGNED DATE/TIME: 08/01/25 1237 CC: Time of 1ST Reevaluation: 13:00 Reevaluation 1ST: Unchanged Patient Education/Counseling: Diagnosis, Treatment Family Education/Counseling: No Family Present Comments Patient has no complaints where her IUD is according to the CT scan. Patient's pain is specific to the right upper quadrant area. Patient found with a UTI she is already receiving daily IV antibiotics at home by home health nurse. Incidental findings were shared with the patient. MDM: patient presented with the above HPI.--right upper quadrant abdominal pain----workup was initiated. patient was found with the above mentioned diagnosis. the following medications were ordered: please refer to order lists of meds and tests obtained by myself Dr. San. Patient ED course and VS have been stabilized. Patient has been reassessed in the ED and remained in a stable condition. Pertinent incidental findings were discussed with the patient and/or family. Patient/family voices understanding and is agreeable with plan. Patient has been observed in the ED adequate length of time to insure improvement/stability. Escalation of care considered: Consideration of escalation to observation or admission Patient was DISCHARGED home in a stable condition. All the reports of any imaging studies that were ordered by myself were reviewed by myself. SEPSIS Sepsis Screen Date sepsis recognized/suspect: Aug 01, 2025 Time Sepsis recognized/suspect: 1130 Recent Procedure: No On Antibiotic Therapy: No Respiratory Rate >20: No Heart Rate >90: No Temp<36 C (96.8 F) or >38.3 C: No SBP <90 or MAP <65 mmHG: No New Acute Mental Status Change: No Is the patient on CPAP, BIPAP,: No Physician Orders Soft Work Wrapper Examiner (08/01/25 ) Ct Ab Pel Wo Con-No Oral Or Iv (08/01/25 11:55) Abdomen Limited (08/01/25 15:16) Vital Signs Date Time Temp Pulse Resp B/P (MAP) Pulse Ox O2 Delivery O2 Flow Rate FiO2 08/01/25 15:01 97.8 77 16 132/71 (91) 99 97.8 08/01/25 11:52 Room Air* 0 21 08/01/25 11:49 97.5 76 16 111/71 (84) 98 97.5 08/01/25 11:27 97.9 87 16 143/92 99 97.9 Laboratory Tests Test 08/01/25 12:20 Lactic Acid Level 0.5 mmol/L (0.4-2.0) White Blood Count 3.4 10^3/uL (4.4-10.8) L Medications Medications Dose Ordered Sig/Stephania Route Start Time Stop Time Status Last Admin Dose Admin Acetaminophen/ Hydrocodone Bitart 1 tab ONCE ONCE PO 08/01/25 15:00 08/01/25 15:06 DC 08/01/25 15:05 Departure 1 Departure Time of Disposition: 13:39 Impression: Primary Impression: Right upper quadrant abdominal pain Additional Impressions: Constipation Pulmonary nodule Spinal stenosis Malpositioned IUD UTI (urinary tract infection) Disposition: HOME / SELF CARE / HOMELESS Condition: Stable Additional Instructions: Additional instructions: Please read all instructions provided in this packet carefully. You MUST follow-up with your primary care/family doctor in 1 to 2 days. If you are unable to see your primary care/family doctor, please return to our emergency room for re-assessment and re-evaluation in 1 to 2 days. Return to the emergency room here in our facility or to the nearest ER [facility] if your symptoms change or worsen. CONSULTATIONS: you MUST Follow-up for consultation as soon as possible with: -gastroenterology and pulmonology and OB Gyne doctor in 1-2 days. Please call for appointment. You MUST call the consultants office yourself to make an appointment. You may need to arrange that through your insurance and/or your primary/family doctor. If you are unable to see the loan consultant in 1 to 2 days, you must return to our emergency room (or any other ER of your choice) for re-assessment and re- evaluation. Adequate fluid hydration. Although you have been discharged from the Emergency Department, this does not mean that you have a "clean bill of health". No definitive diagnosis for your symptoms has been made today. It is possible that you are in the process of developing a serious illness. This is why you must return to the ED without fail if any new or worsening symptoms develop. Below is a copy of your radiological report for follow up: [address] [address] Ph: [phone] DIAGNOSTIC IMAGING Diagnostic Imaging Report : [id number] Signed PATIENT: CYRUS GARCIA ACCT: [id number] UNIT: [id number] : 1960 LOC: ER ROOM / BED: / AGE / SEX: 65 / F ADM STATUS: REG ER SERVICE [id number] ORDERING PHYSICIAN: BI SAN DO PROCEDURE(s): ABPL - CT AB PEL WO CON-NO ORAL OR IV REASON: low back pain, UTI, RUQ pain ORDER NUMBER(s): [id number], ACCESSION NUMBER(s): [id number] EXAM: CT CT AB PEL WO CON-NO ORAL OR IV HISTORY: low back pain, UTI, RUQ pain COMPARISON: None TECHNIQUE: Helical CT images of the abdomen and pelvis were performed without IV contrast. Sagittal and coronal reformatted images were obtained. This CT exam was performed using one or more of the following dose reduction techniques: Automated exposure control, adjustment of the mA and/or kv according to patient size, or the use of iterative reconstruction techniques. Radiation Dose: Abdomen/Pelvis: CTDIvol 11.99 mGy, DLP 663.92 mGy*cm. FINDINGS: CT abdomen: There is pectus excavatum deformity of the lower chest. There is a 3 mm right lower lobe noncalcified pulmonary nodule (image 7, series 5).. The heart is not enlarged. There are coronary artery calcifications. There is a right hepatic simple cyst. The noncontrast spleen, gallbladder, pancreas, kidneys, and adrenal glands are unremarkable. No abdominal aortic aneurysm. There is a left upper quadrant splenule. CT pelvis: No abnormal bowel dilatation, free air, or free fluid. There are descending and sigmoid colon diverticula without evidence of acute diverticulitis. There is fecal retention in the ascending colon and transverse colon. There is fecalization of the terminal ileum. The appendix and urinary bladder are unremarkable. Intrauterine device appears to be positioned too far anterior in the uterus (image 75, series 602; images 144-152, series 5). There are postoperative changes of section surgery. There may be a posterior uterine fibroid versus artifactual appearance. There are multiple phleboliths in the pelvis. There is moderate lumbar and lower thoracic degenerative disc disease and facet arthropathy. There is zamx-jk-bzoephem spinal canal stenosis at every disc level L2-L5. There is significant neural foraminal stenosis bilaterally at L5-S1. There is a chronic mild superior endplate compression fracture of T12 versus appearance due to prominent Schmorl's node. IMPRESSION: 1. Coronary artery disease. 2. 3 mm right lower lobe noncalcified pulmonary nodule. Recommend follow-up according to Fleischner society guidelines 3. Fecal retention in the proximal to mid colon suggestive of constipation. 4. Descending and sigmoid colon diverticula without evidence of acute diverticulitis. 5. IUD appears to be positioned too far anterior. Recommend gynecology consultation for appropriate management. 6. Moderate lumbar degenerative disc disease and facet arthropathy with significant neural foraminal stenosis bilaterally at L5-S1 and ofss-ym-hzkvlisr spinal canal stenosis at every disc level L2-L5. This may be better characterized with noncontrast MRI of the lumbar spine on an outpatient basis, especially if the patient complains of lower extremity radicular symptoms. 7. No evidence of bowel obstruction, acute appendicitis, or other acute process in the abdomen or pelvis. ATED BY: SANGEETHA SALEH MD DICTATED DATE/TIME: 08/01/25 1237 SIGNED BY: SANGEETHA SALEH MD SIGNED DATE/TIME: 08/01/25 1237 CC: [address] [address] Ph: [phone] DIAGNOSTIC IMAGING Diagnostic Imaging Report : [id number] Signed PATIENT: CYRUS GARCIA ACCT: [id number] UNIT: [id number] : 1960 LOC: ER ROOM / BED: / AGE / SEX: 65 / F ADM STATUS: REG ER SERVICE [id number] ORDERING PHYSICIAN: BI SAN DO PROCEDURE(s): ABDL - ABDOMEN LIMITED REASON: RUQ PAIN ORDER NUMBER(s): [id number], ACCESSION NUMBER(s): [id number] EXAM: US ABDOMEN LIMITED HISTORY: RUQ PAIN COMPARISON: CT CT AB PEL WO CON-NO ORAL OR IV on DOS: 08/01/25 TECHNIQUE: Multiple longitudinal and transverse sonographic images of the abdomen were obtained. Doppler was applied as indicated. FINDINGS: [PANCREAS]: The visualized portions of the pancreas are unremarkable. [AORTA]: Normal [LIVER]: 15.9 cm. normal echogenicity and echotexture. There is no focal hepatic mass lesion detected. Benign-appearing cysts of the right hepatic lobe measuring 1.8 cm. [GALLBLADDER]: Gallbladder wall measures 0.2 cm. There is no gallbladder sludge or shadowing gallstone. There is no sonographic Miramontes sign. [BILIARY TREE]: Common bile duct measures 0.4 cm in diameter. no intrahepatic biliary ductal dilatation. [ASCITES]: No free fluid is demonstrated. [VESSELS]: The main portal vein is patent on color Doppler evaluation. The inferior vena cava is patent on color Doppler evaluation. [RIGHT KIDNEY]: 9.1 cm. normal cortical echogenicity and normal contour. No hydronephrosis. IMPRESSION: 1. No acute sonographic abnormality of the abdomen. ATED BY: ИВАН DASILVA MD DICTATED DATE/TIME: 08/01/25 160 SIGNED BY: ИВАН DASILVA MD SIGNED DATE/TIME: 08/01/25 1605 CC: Discharged With: Self I personally scribed for BI SAN DO ([email or web address]) on 08/01/25 at 12:39. Electronically submitted by Ronna Vickers ([email or web address]). I personally scribed for BI SAN DO ([email or web address]) on 08/01/25 at 12:51. Electronically submitted by Ronna Vickers ([email or web address]). BI SAN DO Aug 01, 2025 12:39
[2025-08-01 12:43] LABS: Hematocrit 41.0 % (36.0-46.0); Hemoglobin 14.0 g/dL (12.2-16.2); Mean Corpuscular Hemoglobin 29.5 pg (28.0-32.0); Mean Corpuscular Volume 86.0 fL (80.0-100.0); Nucleated Red Blood Cells % 0.1 %
[2025-08-01 12:55] LABS: Alanine Aminotransferase 16 U/L (7-40); Albumin 4.6 g/dL (3.2-4.8); Alkaline Phosphatase 76 U/L (46-116); Anion Gap 9 (5-15); BUN/Creatinine Ratio 12.9 (10.0-20.0); Blood Urea Nitrogen 9 mg/dL (9-23); Calcium 9.3 mg/dL (8.7-10.4); Carbon Dioxide 27 mmol/L (20-31); Chloride 103 mmol/L (98-107); Glucose 80 mg/dL (74-106); Potassium 3.8 mmol/L (3.5-5.1); Sodium 139 mmol/L (136-145); Total Protein 7.6 g/dL (5.7-8.2)
[2025-08-01 12:56] LABS: Bilirubin, Total 2.3 mg/dL (0.2-1.0)
[2025-08-01 12:56] LABS: Urine Protein, UAD Negative (Negative)
[2025-08-01 15:01] VITALS: BP 132/71; PULSE 77; RESP 16; TEMP 97.8; O2SAT 99
[2025-08-01] MEDS: HYDROcodone-ACET 5/325MG TAB PO ONE (15:05)
--- NOTE | 2025-08-01 16:07 | DVH ---
EXAM: US ABDOMEN LIMITED HISTORY: RUQ PAIN COMPARISON: CT CT AB PEL WO CON-NO ORAL OR IV on DOS: 08/01/25 TECHNIQUE: Multiple longitudinal and transverse sonographic images of the abdomen were obtained. Doppler was applied as indicated. FINDINGS: [PANCREAS]: The visualized portions of the pancreas are unremarkable. [AORTA]: Normal [LIVER]: 15.9 cm. normal echogenicity and echotexture. There is no focal hepatic mass lesion detected. Benign-appearing cysts of the right hepatic lobe measuring 1.8 cm. [GALLBLADDER]: Gallbladder wall measures 0.2 cm. There is no gallbladder sludge or shadowing gallstone. There is no sonographic Miramontes sign. [BILIARY TREE]: Common bile duct measures 0.4 cm in diameter. no intrahepatic biliary ductal dilatation. [ASCITES]: No free fluid is demonstrated. [VESSELS]: The main portal vein is patent on color Doppler evaluation. The inferior vena cava is patent on color Doppler evaluation. [RIGHT KIDNEY]: 9.1 cm. normal cortical echogenicity and normal contour. No hydronephrosis. IMPRESSION: 1. No acute sonographic abnormality of the abdomen.
[2025-08-01 16:23] LABS: Lipase 75 U/L (12-53)
== END 2025-08-01 16:21 | disposition home or self-care (01) ==
LOC: ER 11:25
DX: T83.32XA Displacement of intrauterine contraceptive device, initial encounter (principal); R10.11 Right upper quadrant pain; K59.00 Constipation, unspecified; R91.1 Solitary pulmonary nodule; M48.061 Spinal stenosis, lumbar region without neurogenic claudication; N39.0 Urinary tract infection, site not specified; Z88.0 Allergy status to penicillin; Z88.2 Allergy status to sulfonamides; Z88.1 Allergy status to other antibiotic agents; Z98.51 Tubal ligation status; Y76.2 Prosthetic and other implants, materials and accessory obstetric and gynecological devices associated with adverse incidents
CPT/HCPCS: 36415; 74176; 76705; 80053; 81001; 83605; 83690; 85025

== ENCOUNTER 2025-08-19 20:09 | Emergency (ER) | payer MEDICAID ==
[~2025-08-19] VITALS: Ht 167.6 cm; Wt 151.3 kg
[2025-08-19] MEDS: FUROSEMIDE 40 MG/4 ML VIAL IV ONE (20:30)
--- NOTE | 2025-08-19 20:31 | ED.PDOC ---
SOB-HPI HPI Comments 65 y.o female presents to the ED for a chief complaint of SOB associated with abdominal distention and eye swelling x today. Patient states " feels like a CHF exacerbation" and mentions having excess amount of sodium today. She denies any chest pain, fever, chills, nausea, or vomiting. At bedside, does mention feeling lightheaded. Vitals: Temp: BP: 135/79 HR: 86 RR: 18 SPO2: 100% RA Past medical history:CHF, HTN, anxiety, rheumatoid arthritis, Lupus Past surgical history: and TBL GARCIA: SOB, CHF. HPI: Poor Historian. REVIEW OF SYSTEMS: CONSTITUTIONAL: Denies acute: fever, diaphoresis, chills, generalized weakness. HEAD: Denies acute: headache, photophobia Eyes: Denies acute: Double vision, vision loss, eye pain, eye discharge. EARS: Denies acute: tinnitus, hearing loss, ear discharge, ear pain, THROAT: Denies acute: sore throat, swelling, difficulty swallowing , pain with swallowing, change in voice. NECK: Denies acute: neck pain, neck swelling, stiff neck. HEART: Denies acute : chest pain, palpitations, LUNGS: Denies acute: wheezing, cough, hemoptysis ABDOMEN: Denies acute: abdominal pain, Nausea, Vomiting, diarrhea, melena , hematemesis, hematochezia SKIN: Denies acute: rash, redness, lesions, itchiness. EXTREMITIES: Denies acute: calf pain, numbness, tingling, weakness, denies pain in extremity. Denies acute: Low back pain. Neuro: Denies acute: focal neurological deficit, motor or sensory focal neurological deficit, tremors, seizure like activity, confusion, change in mental status, loss of bowel or bladder function, cauda equina like symptoms. : Denies acute: dysuria, hematuria, flank pain, increase in urinary frequency. PSYCH: Denies acute: hallucination, suicidal ideation, homicidal ideation. FEMALE: Denies acute: abnormal vaginal bleeding, foul odor, unusual discharge. PHYSICAL EXAM: General: ----mild----acute distress, awake and alert. Head: normocephalic, atraumatic. No raccoon's eyes, no tineo sign. Neck: supple, trachea is midline, no swelling. Throat: Normal phonation. Eyes:, no erythema, no purulent discharge, no proptosis, no icterus. Heart: regular rate, regular rhythm, no significant murmur appreciated. Lungs: no apparent respiratory distress, Able to speak in full sentences. No wheezing, no rhonchi, no crackles. No stridors Clear to auscultation bilaterally. Abdomen: non tender to palpation, non distended, soft, no guarding, no rebound, + bowel sounds. Neuro: Awake, Alert, oriented to name, self, situation, follows commands GCS=15. Speech is normal. Skin: no petechia, no purpura, no cyanosis, non-pale, not jaundice. Lower extremities: --raise bilateral - Pitting edema no deformity, no focal swelling, no calf TTP. Makes eye contact. moves all four extremities. Face: no apparent facial droop. Ambulating in the ED independently. ED COURSE: DISCLAIMER: This medical document was created using an electronic medical record system with voice recognition software and computerized dictation system. Although this d ocument has been carefully reviewed, there might still be some phonetic and typographical errors. Occasional wrong-word or "sound-alike" substitutions may have occurred due to the inherent limitations of voice recognition software. These areas are purely typographical due to imperfections of the software programs and do not reflect any compromise in the patient's medical care. Please read the chart carefully and recognize, using context, where these substitutions have occurred. 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 Was a procedure done?: No Differential Dx Differential Diagnosis: CHF, COPD, Pneumonia, Pneumothorax, Respiratory Distress, URI, Other (DDx include ACS, unstable angina, anxiety, PE, pneumot hroax, neoplasm, cardiac ischemia, COPD, asthma, CHF, pleural effusion, tobacco abuse, pneumonia, hypoxia, hypercapnia, anemia., infection/sepsis., pulmonary edema. Asthma, Cardiac tamponade, infection.) X-Ray, Labs, Meds, VS Vital Signs Date Time Temp Pulse Resp B/P (MAP) Pulse Ox O2 Delivery O2 Flow Rate FiO2 08/20/25 02:09 98.1 84 18 128/73 (91) 98.1 08/20/25 01:00 98 Room Air* 0 21 08/19/25 20:30 128/73 08/19/25 20:16 76 08/19/25 20:11 86 18 135/79 100 Lab Test 08/19/25 23:35 08/19/25 21:45 08/19/25 20:53 Range/Units Blood Gas Specimen Type Arterial Blood Gas Sample Site Left radial Blood Gas Patient Temperature 37.0 Arterial Blood Date Drawn [id number] Arterial Blood pH 7.534 H 7.350-7.450 Arterial Blood Partial Pressure CO2 26.2 L 32.0-45.0 mmHg Arterial Blood Partial Pressure O2 112.5 H 83.0-108.0 mmHg Arterial Blood HCO3 21.6 21.0-28.0 mmol/L Arterial Blood Oxygen Saturation 98.3 H 94.0-98.0 % Arterial Blood Base Excess 0.4 -2.0-3.0 mmol/L Arterial Blood Oxyhemoglobin 97.5 94.0-98.0 % Arterial Blood Carboxyhemoglobin 0.4 L 0.5-1.5 % Arterial Blood Methemoglobin 0.4 0.0-1.5 % Arterial Blood Deoxyhemoglobin 1.7 0.0-5.0 % Maciel Test Yes Blood Gas Total Hemoglobin 13.60 12.0-16.0 g/dL Blood Gas Modality Room air FiO2 % 21.0 Troponin I High Sensitivity < 3 L < 3 L </=34 ng/L White Blood Count 3.5 L 4.4-10.8 10^3/uL Red Blood Count 4.49 4.0-5.20 10^6/uL Hemoglobin 13.5 12.2-16.2 g/dL Hematocrit 38.4 36.0-46.0 % Mean Corpuscular Volume 85.4 80.0-100.0 fL Mean Corpuscular Hemoglobin 30.0 28.0-32.0 pg Mean Corpuscular Hemoglobin Concent 35.1 32.0-36.0 g/dL Red Cell Distribution Width 16.2 H 11.8-14.3 % Platelet Count 177 140-450 10^3/uL Mean Platelet Volume 7.6 6.9-10.8 fL Neutrophils (%) (Auto) 51.2 37.0-80.0 % Lymphocytes (%) (Auto) 36.4 10.0-50.0 % Monocytes (%) (Auto) 11.1 0.0-12.0 % Eosinophils (%) (Auto) 0.5 0.0-7.0 % Basophils (%) (Auto) 0.8 0.0-2.0 % Neutrophils # (Auto) 1.8 1.6-8.6 10 ^3/uL Lymphocytes # (Auto) 1.3 0.4-5.4 10 ^3/uL Monocytes # (Auto) 0.4 0-1.3 10 ^3/uL Eosinophils # (Auto) 0 0-0.8 10 ^3/uL Basophils # (Auto) 0 0-0.2 10 ^3/uL Nucleated Red Blood Cells 0.1 % Sodium Level 144 136-145 mmol/L Potassium Level 3.5 3.5-5.1 mmol/L Chloride Level 107 98-107 mmol/L Carbon Dioxide Level 27 20-31 mmol/L Anion Gap 10 5-15 Blood Urea Nitrogen 19 9-23 mg/dL Creatinine 0.67 0.550-1.02 mg/dL Glomerular Filtration Rate Calc 98 >90 mL/min BUN/Creatinine Ratio 28.4 H 10.0-20.0 Serum Glucose 80 74-106 mg/dL Calcium Level 9.8 8.7-10.4 mg/dL Total Bilirubin 1.6 H 0.2-1.0 mg/dL Aspartate Amino Transferase (AST) 22 13-40 U/L Alanine Aminotransferase (ALT) 17 7-40 U/L Alkaline Phosphatase 77 46-116 U/L B-Type Natriuretic Peptide 19.97 0-100 pg/mL Total Protein 7.0 5.7-8.2 g/dL Albumin 4.3 3.2-4.8 g/dL Current Medications Medications (Trade) Dose Ordered Sig/Stephania Route Start Time Stop Time Status Last Admin Furosemide (Lasix Injection) 40 mg ONCE ONCE IV 08/19/25 20:30 08/19/25 20:40 DC 08/19/25 20:30 [place] [id number] Ph: [phone] DIAGNOSTIC IMAGING Diagnostic Imaging Report : [id number] Signed PATIENT: CYRUS GARCIA ACCT: [id number] UNIT: [id number] : 1960 LOC: ER ROOM / BED: / AGE / SEX: 65 / F ADM STATUS: REG ER SERVICE 27 ORDERING PHYSICIAN: BI SAN DO PROCEDURE(s): CXRP - CHEST PORTABLE REASON: sob ORDER NUMBER(s): [id number], ACCESSION NUMBER(s): [id number] EXAM: XY CHEST PORTABLE HISTORY: sob TECHNIQUE: 1 view of the chest COMPARISON: XY CHEST PORTABLE on DOS: 03/05/25 FINDINGS/IMPRESSION: LUNGS: No pleural effusion, consolidation, or pneumothorax. MEDIASTINUM: Unremarkable. BONES: No acute osseous abnormality. OTHER: None. ATED BY: ИВАН DASILVA MD DICTATED DATE/TIME: 08/19/252110 SIGNED BY: ИВАН DASILVA MD SIGNED DATE/TIME: 08/19/252110 CC: Time of 1ST Reevaluation: 20:27 Reevaluation 1ST: Unchanged Patient Education/Counseling: Diagnosis, Treatment Family Education/Counseling: No Family Present Comments MDM: patient presented with the above HPI.---dyspnea---workup was initiated. patient was found with the above mentioned diagnosis. the following medications were ordered: please refer to order lists of meds and tests obtained by myself Dr. San. Patient ED course and VS have been stabilized. Patient has been reassessed in the ED and remained in a stable condition. Pertinent incidental findings were discussed with the patient and/or family. Patient/family voices understanding and is agreeable with plan. Patient has been observed in the ED adequate length of time to insure improvement/stability. Escalation of care considered: Consideration of escalation to observation or admission Patient was DISCHARGED home in a stable condition. All the reports of any imaging studies that were ordered by myself were reviewed by myself. Departure 1 Departure Time of Disposition: 00:12 Impression: Primary Impression: Dyspnea Disposition: 01 HOME / SELF CARE / HOMELESS Condition: Stable Additional Instructions: Additional instructions: Please read all instructions provided in this packet carefully. You MUST follow-up with your primary care/family doctor in 1 to 2 days. If you are unable to see your primary care/family doctor, please return to our emergency room for re-assessment and re-evaluation in 1 to 2 days. Return to the emergency room here in our facility or to the nearest ER [facility] if your symptoms change or worsen. CONSULTATIONS: you MUST Follow-up for consultation as soon as possible with: pulmonology and cardiology in 1-2 days. Please call for appointment. You MUST call the consultants office yourself to make an appointment. You may need to arrange that through your insurance and/or your primary/family doctor. If you are unable to see the toy consultant in 1 to 2 days, you must return to our emergency room (or any other ER of your choice) for re-assessment and re- evaluation. Adequate fluid hydration. Although you have been discharged from the Emergency Department, this does not mean that you have a "clean bill of health". No definitive diagnosis for your symptoms has been made today. It is possible that you are in the process of developing a serious illness. This is why you must return to the ED without fail if any new or worsening symptoms develop. Discharged With: Self Critical Care Note Critical Care Time?: No I personally scribed for BI SAN DO ([email or web address]) on 08/19/25 at 20:31. Electronically submitted by Kevin Thomas ([email or web address]). I personally scribed for BI SAN DO ([email or web address]) on 08/19/25 at 21:39. Electronically submitted by Kevin Thomas ([email or web address]). I personally scribed for BI SAN DO ([email or web address]) on 08/19/25 at 22:14. Electronically submitted by Kevin Thomas ([email or web address]). BI SAN DO Aug 19, 2025 20:31
[2025-08-19 21:12] LABS: Hematocrit 38.4 % (36.0-46.0); Hemoglobin 13.5 g/dL (12.2-16.2); Mean Corpuscular Hemoglobin 30.0 pg (28.0-32.0); Mean Corpuscular Volume 85.4 fL (80.0-100.0); Nucleated Red Blood Cells % 0.1 %
--- NOTE | 2025-08-19 21:13 | DVH ---
EXAM: XY CHEST PORTABLE HISTORY: sob TECHNIQUE: 1 view of the chest COMPARISON: XY CHEST PORTABLE on DOS: 03/05/25 FINDINGS/IMPRESSION: LUNGS: No pleural effusion, consolidation, or pneumothorax. MEDIASTINUM: Unremarkable. BONES: No acute osseous abnormality. OTHER: None.
[2025-08-19 21:29] LABS: Alanine Aminotransferase 17 U/L (7-40); Albumin 4.3 g/dL (3.2-4.8); Alkaline Phosphatase 77 U/L (46-116); Anion Gap 10 (5-15); BUN/Creatinine Ratio 28.4 (10.0-20.0); Blood Urea Nitrogen 19 mg/dL (9-23); Calcium 9.8 mg/dL (8.7-10.4); Carbon Dioxide 27 mmol/L (20-31); Glucose 80 mg/dL (74-106); Sodium 144 mmol/L (136-145); Total Protein 7.0 g/dL (5.7-8.2)
[2025-08-19 21:33] LABS: Bilirubin, Total 1.6 mg/dL (0.2-1.0); Chloride 107 mmol/L (98-107); Potassium 3.5 mmol/L (3.5-5.1)
[2025-08-19 23:48] LABS: Base Excess 0.4 mmol/L (-2.0-3.0)
[2025-08-20 01:00] VITALS: O2SAT 98
[2025-08-20] MEDS ORDERED: FUROSEMIDE 40 MG/4 ML VIAL ONE (01:52)
[2025-08-20 02:09] VITALS: BP 128/73; PULSE 84; RESP 18; TEMP 98.1
--- NOTE | 2025-08-21 14:54 | ECG ---
[facility] Test Date: 2025-08-19 Test Time: 20:16:05 Pat Name: CYRUS GARCIA Department: TRI Room: Gender: F Welcome Wagon Hostess: ALCIDES : 1960 Requested By: BI SAN Order Number: [id number] Reading MD: Measurements Intervals [place] Rate: 76 P: 53 GA: 162 QRS: 70 QRSD: 94 T: 7 QT: 372 QTc: 419 Interpretive Statements Sinus rhythm Atrial premature complex Low voltage, precordial leads Borderline T wave abnormalities Please click the below link to view image of tracing.
== END 2025-08-20 03:00 | disposition home or self-care (01) ==
LOC: ER 20:09
DX: R06.00 Dyspnea, unspecified (principal); R14.0 Abdominal distension (gaseous); R22.0 Localized swelling, mass and lump, head; I11.0 Hypertensive heart disease with heart failure; I50.9 Heart failure, unspecified; M19.90 Unspecified osteoarthritis, unspecified site; Z98.51 Tubal ligation status; Z98.890 Other specified postprocedural states
CPT/HCPCS: 36415; 36600; 71045; 80053; 82805; 83880; 84484; 85025; 96374; 99285; J1938; 93005